=== PATIENT | male | born 1940 | race Caucasian/White ===

== ENCOUNTER 2020-04-03 11:56 | Emergency (ER) | payer MEDICARE ==
[~2020-04-03] VITALS: Ht 180.3 cm; Wt 100.6 kg
[2020-04-03 11:56] VITALS: BP 149/75
[2020-04-03] MEDS ORDERED: ATOR1TAB21 PO (12:04)
[2020-04-03] MEDS ORDERED: ASPI81TA26 PO (12:04)
[2020-04-03] MEDS ORDERED: PROPARACAINE 0.5% OPHTH SOL 15ML OD ONE (13:15)
[2020-04-03] MEDS ORDERED: FLUORESCEIN OPHTH 1 MG STRIP OD ONE (13:15)
== END 2020-04-03 14:15 | disposition home or self-care (01) ==
LOC: M ED 11:56
DX: H53.8 Other visual disturbances (principal); E78.00 Pure hypercholesterolemia, unspecified; K21.9 Gastro-esophageal reflux disease without esophagitis; Z79.899 Other long term (current) drug therapy; Z79.82 Long term (current) use of aspirin

== ENCOUNTER → 2020-04-12 | Outpatient (REF) | payer MEDICARE ==
[~2020-04-12] MED LIST: ASPI81TA26 PO; ATOR1TAB21 PO
== END ==
LOC: M LAB REF 19:09
PROVIDERS: ATTEND Internal Medicine
DX: I77.6 Arteritis, unspecified (principal)

== ENCOUNTER → 2020-04-19 | Outpatient (REF) | payer MEDICARE | LOC: M LAB REF 11:47 | PROVIDERS: ATTEND Surgery | DX: M31.6 Other giant cell arteritis (principal) ==

== ENCOUNTER → 2020-04-21 | Outpatient (REF) | payer MEDICARE | LOC: M LAB REF 10:38 | PROVIDERS: ATTEND Internal Medicine | DX: R79.82 Elevated C-reactive protein (CRP) (principal) ==

== ENCOUNTER → 2020-04-25 | Outpatient (CLI) | payer MEDICARE ==
--- NOTE | 2020-05-12 10:03 | REP ---
DUPLEX CAROTID SONOGRAPHY HISTORY: Transient cerebral ischemic attack. Left amaurosis fugax. FINDINGS: Antegrade flow is observed in the right vertebral artery. The left vertebral artery is not seen. RIGHT CAROTID: The right common carotid artery is unremarkable. There is bodx-sh-gypmbhid mixed plaquing in the right carotid bulb and proximal ICA on two-dimensional scanning. Color flow and spectral Doppler interrogation are unremarkable on the right. VELOCITY CHART RIGHT CAROTID PSV EDV CCA 61 cm/s ICA 55 cm/s 13 cm/s ECA 70 cm/s ICA/CCA ratio 0.9 (normal) IMPRESSION: Less than 50% category narrowing in the right ICA by Doppler velocity criteria. LEFT CAROTID: The left common carotid artery is unremarkable. There is moderate mixed plaquing in the bulb, proximal ICA, and proximal ECA on two-dimensional scanning on the left side. Color flow and spectral Doppler interrogation are unremarkable on the left. VELOCITY CHART LEFT CAROTID PSV EDV CCA 58 cm/s ICA 66 cm/s 18 cm/s ECA 49 cm/s ICA/CCA ratio 1.1 (normal) IMPRESSION: Less than 50% category narrowing in the left ICA by Doppler velocity criteria. MTDD
== END ==
LOC: M RAD 12:36
PROVIDERS: ATTEND Ophthalmology
DX: I65.23 Occlusion and stenosis of bilateral carotid arteries (principal)

== ENCOUNTER → 2020-05-11 | Outpatient (REF) | payer MEDICARE | LOC: M LAB REF 12:48 | PROVIDERS: ATTEND Internal Medicine | DX: M31.6 Other giant cell arteritis (principal) ==

== ENCOUNTER → 2020-05-25 | Outpatient (REF) | payer MEDICARE | LOC: M LAB REF 11:19 | PROVIDERS: ATTEND Internal Medicine | DX: R79.82 Elevated C-reactive protein (CRP) (principal); M31.6 Other giant cell arteritis ==

== ENCOUNTER → 2020-06-08 | Outpatient (REF) | payer MEDICARE | LOC: M LAB REF 11:19 | PROVIDERS: ATTEND Internal Medicine | DX: M31.6 Other giant cell arteritis (principal); R79.82 Elevated C-reactive protein (CRP) ==

== ENCOUNTER → 2020-06-22 | Outpatient (REF) | payer MEDICARE | LOC: M LAB REF 11:38 | PROVIDERS: ATTEND Internal Medicine | DX: M31.6 Other giant cell arteritis (principal) ==

== ENCOUNTER → 2020-07-06 | Outpatient (REF) | payer MEDICARE | LOC: M LAB REF 11:19 | PROVIDERS: ATTEND Internal Medicine | DX: M31.6 Other giant cell arteritis (principal) ==

== ENCOUNTER → 2020-07-20 | Outpatient (REF) | payer MEDICARE | LOC: M LAB REF 11:36 | PROVIDERS: ATTEND Internal Medicine | DX: M31.6 Other giant cell arteritis (principal) ==

== ENCOUNTER → 2020-08-11 | Outpatient (REF) | payer MEDICARE | LOC: M LAB REF 12:05 | PROVIDERS: ATTEND Internal Medicine | DX: M31.6 Other giant cell arteritis (principal) ==

== ENCOUNTER → 2020-08-25 | Outpatient (REF) | payer MEDICARE ==
[~2020-08-25] MED LIST changes: +ASPI-1 PO; +ELIQ5TAB PO; +ESCI10TA16 PO; +PRED5TA PO
== END ==
LOC: M LAB REF 12:20
PROVIDERS: ATTEND Internal Medicine
DX: M31.6 Other giant cell arteritis (principal)

== ENCOUNTER 2020-08-26 14:00 | Inpatient (IN) | payer MEDICARE ==
[~2020-08-26] VITALS: Ht 180.3 cm; Wt 102.9 kg
[~2020-08-26 14:00] MED LIST changes: -ASPI-1 PO; -ELIQ5TAB PO; -ESCI10TA16 PO; -ISOVUE-370 76% 100ML VIAL As Ordered ONE; -PRED5TA PO
[2020-08-26] MEDS ORDERED: NS 1,000 ML IV SCH (14:20)
[2020-08-26] MEDS ORDERED: ESCI10TA16 PO (14:25)
[2020-08-26] MEDS ORDERED: PRED5TA PO (14:25)
[2020-08-26] MEDS ORDERED: ASPI-1 PO (14:25)
[2020-08-26 15:03] LABS: BASO # 0.1 10^3/uL (0.0-0.2); BASO % 0.4 % (0.0-1.0); EOS # 0.1 10^3/uL (0.0-0.5); EOS % 1.3 % (0.0-3.0); HEMATOCRIT 44.2 % (42.0-52.0); LYMPH # 1.2 10^3/uL (1.5-5.0); LYMPH % 10.3 % (24.0-44.0); MEAN CORPUSCULAR HEMOGLOBIN 31.5 pg (27.0-33.0); MEAN CORPUSCULAR HGB CONC 31.7 g/dl (32.0-36.5); MEAN CORPUSCULAR VOLUME 99.5 fl (80.0-96.0); MONO # 0.6 10^3/uL (0.0-0.8); MONO % 5.5 % (0.0-5.0); NEUTROPHILS # 9.1 10^3/uL (1.5-8.5); NEUTROPHILS % 81.3 % (36.0-66.0); PLATELET COUNT, AUTOMATED 156 10^3/uL (150-450); RED BLOOD COUNT 4.44 10^6/uL (4.30-6.10); WHITE BLOOD COUNT 11.2 10^3/uL (4.0-10.0)
[2020-08-26 15:07] LABS: ABG BASE EXCESS -1.3 (-2.0-2.0); ABG HCO3 22.9 MEQ/L (22.0-26.0); ABG O2 SATURATION 96.5 % (95.0-99.0); ABG PARTIAL PRESSURE CO2 36.9 mmHg (35.0-45.0); ABG PARTIAL PRESSURE O2 83.6 mmHg (75.0-100.0); ABG STANDARD HCO3 23.4 MEQ/L (22.0-26.0); ABG TOTAL CO2 24.1 MEQ/L (23.0-31.0); ABG pH (ARTERIAL) 7.411 UNITS (7.350-7.450)
[2020-08-26 15:21] LABS: INR 1.08; PROTHROMBIN TIME 14.2 SECONDS (12.5-14.3)
[2020-08-26 15:22] LABS: PARTIAL THROMBOPLASTIN TIME 25.5 SECONDS (24.2-38.5)
[2020-08-26 15:38] LABS: ALBUMIN 3.3 GM/DL (3.2-5.2); ALT/SGPT 55 U/L (12-78); BILIRUBIN,DIRECT 0.1 MG/DL (0.0-0.2); BILIRUBIN,TOTAL 0.5 MG/DL (0.2-1.0); BLOOD UREA NITROGEN 18 MG/DL (7-18); CALCIUM LEVEL 8.4 MG/DL (8.8-10.2); CARBON DIOXIDE LEVEL 29 MEQ/L (21-32); CHLORIDE LEVEL 106 MEQ/L (98-107); CK-MB VALUE MASS 2.6 NG/ML (<3.6); CPK CREATINE PHOSPHOKINASE 121 U/L (39-308); CREATININE FOR GFR 1.04 MG/DL (0.70-1.30); GLOMERULAR FILTRATION RATE > 60.0 (>35); GLUCOSE, FASTING 198 MG/DL (70-100); MB/CK RELATIVE INDEX 2.15 (< OR =4); NT-PRO BNP 227 PG/ML (<450); POTASSIUM SERUM 4.2 MEQ/L (3.5-5.1); SODIUM LEVEL 142 MEQ/L (136-145); TOTAL PROTEIN 6.2 GM/DL (6.4-8.2); TROPONIN I < 0.02 NG/ML (< 0.10)
[2020-08-26] MEDS ORDERED: MAALOX 30 ML SUSP *UDC PO PRN (16:45)
[2020-08-26] MEDS ORDERED: MOM 30ML SUSPENSION UDC PO PRN (16:45)
--- NOTE | 2020-08-26 17:46 | HPEPDOC ---
General Date of Admission 08/26/20 Date of Service: Aug 26, 2020 Chief Complaint The patient is a 79-year-old male admitted with a reason for visit of Diff Breathing. Source: Patient, RN/MD History of Present Illness 79 year old male with PMH of pulmonary embolism has been having increasing SOB for 3 weeks with increased cough. He went to see his PMD who ordered at CT renee o of chest which was completed today. CT angio of Chest: There is a saddle like abnormal filling defect within the main right and left pulmonary arteries. This represents a change from prior exam. Once again, abnormal filling defects are seen throughout the pulmonary arterial system bilaterally right greater than left. Some of this has improved, some of this has worsened, and some of this appears stable. So he was sent to he ED for evaluation. He complains of some exertional dyspnea with cough. Denies any hemoptysis. denies any chest pain. Denies any leg pain or swelling recently. Denies any travel recently. 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 Surgical History Pilonidal cyst surgery Family History Significant Family History: No pertinent family hx Sister 7 years ago from old age. parents from old age. Social History * Smoker: former Smoker Alcohol: rarely Drugs: denies A-FIB/CHADSVASC A-FIB History Current/History of A-Fib/PAF?: No Review of Systems Constitutional: Denies: Chills, Fever, Night Sweats Eyes: Denies: Pain, Vision change ENT: Denies: Head Aches, Ear Pain, Dysphagia Skin: Denies: Rash, Lesions, Breakdown Pulmonary: Reports: Dyspnea, Cough Cardiovascular: Denies: Chest Pain, Palpitations, Orthopnea, Paroxysmal Noc. Dyspnea, Lt Headedness Gastrointestinal: Denies: Nausea, Vomiting, Abdominal Pain, Diarrhea Genitourinary: Denies: Dysuria, Frequency, Incontinence, Retention Hematologic: Denies: Bruising, Bleeding Excessively Physical Examination General Exam: Positive: Alert, Cooperative, No Acute Distress Eye Exam: Positive: PERRLA, Conjunctiva & lids normal, EOMI; Negative: Sclera icteric ENT Exam: Positive: Atraumatic, Mucous membr. moist/pink, Pharynx Normal Neck Exam: Positive: Supple; Negative: JVD, thyromegaly Chest Exam: Positive: Clear to auscultation, Normal air movement; Negative: Rales, Rhonchi, Wheezing, Diminished, Other Heart Exam: Positive: Rate Normal, Regular Rhythm, Normal S1, Normal S2; Negative: Murmurs, Rubs Telemetry: Positive: No significant arrhythmia Abdomen Exam: Positive: Normal bowel sounds, Soft; Negative: Tenderness, Hepatospenomegaly Extremity Exam: Positive: Edema (right leg), Normal pulses; Negative: Clubbing, Cyanosis Skin Exam: Positive: Nl turgor and temperature; Negative: Breakdown, Lesion Vital Signs Vital Signs Date Time Temp Pulse Resp B/P (MAP) Pulse Ox O2 Delivery O2 Flow Rate FiO2 08/26/20 15:45 73 20 135/68 (90) 98 Room Air 08/26/20 14:50 2.0 08/26/20 14:01 97.5 Laboratory Data Labs 24H Laboratory Tests 2 08/26/20 14:47: Immature Granulocyte % (Auto) 1.2, Neutrophils (%) (Auto) 81.3H, Lymphocytes (%) (Auto) 10.3L, Monocytes (%) (Auto) 5.5H, Eosinophils (%) (Auto) 1.3, Basophils (%) (Auto) 0.4, Neutrophils # (Auto) 9.1H, Lymphocytes # (Auto) 1.2L, Monocytes # (Auto) 0.6, Eosinophils # (Auto) 0.1, Basophils # (Auto) 0.1, Nucleated Red Blood Cells % (auto) 0.0, Prothrombin Time 14.2H, Prothromb Time International Ratio 1.08, Activated Partial Thromboplast Time 25.5, Blood Gas Bicarbonate Standard 23.4, Arterial Blood pH 7.411, Arterial Blood Partial Pressure CO2 36.9, Arterial Blood Partial Pressure O2 83.6, Arterial Blood Total CO2 24.1, Arterial Blood HCO3 22.9, Arterial Blood Base Excess -1.3, Arterial Blood Oxygen Saturation 96.5, Anion Gap 7L, Glomerular Filtration Rate > 60.0, Calcium Level 8.4L, Total Bilirubin 0.5, Direct Bilirubin 0.1, Aspartate Amino Transf (AST/SGOT) 26, Alanine Aminotransferase (ALT/SGPT) 55, Alkaline Phosphatase 79, Total Creatine Kinase 121, Creatine Kinase MB 2.6, Creatine Kinase MB Relative Index 2.15, Troponin I < 0.02, CH-Wml-U-Type Natriuretic Peptide 227, Total Protein 6.2L, Albumin 3.3, Albumin/Globulin Ratio 1.1 CBC/BMP Laboratory Tests 08/26/20 14:47 Microbiology Microbiology 08/26/20 Respiratory Virus Panel (PCR) ([facility]) - Final, Complete Assessment/Plan 79 year old male with PMH of pulmonary embolism has been having increasing SOB for 3 weeks with increased cough. He went to see his PMD who ordered at CT angio of chest which was completed today. CT angio showed pulmonary embolism. CT angio of Chest: There is a saddle like abnormal filling defect within the main right and left pulmonary arteries. This represents a change from prior exam. Once again, abnormal filling defects are seen throughout the pulmonary arterial system bilaterally right greater than left. Some of this has improved, some of this has worsened, and some of this appears stable. Pulmonary embolism Had P in 2007 was on coumadin for a few years then stopped. hypercoagulable work up sent Will start on Eliquis. Vascular US for DVT. Temporal arteritis diagnosed in apr 2020 with partial loss of right eye vision on prednisone Plan / VTE VTE Prophylaxis Ordered?: Yes JESUS LERNER MD Aug 26, 2020 16:46
--- NOTE | 2020-08-26 18:18 | ECGEPIP ---
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
--- NOTE | 2020-08-26 19:09 | REPVR ---
PROCEDURE INFORMATION: Exam: US Duplex Lower Extremity Veins, Bilateral Exam date and time: 08/26/2020 6:20 PM Age: 79 years old Clinical indication: Pulmonary embolism, R/O DVT TECHNIQUE: Imaging protocol: Real-time duplex ultrasound of the extremities with 2-D mayfield scale, color Doppler flow and spectral waveform analysis with image documentation. Complete exam focused on the bilateral lower extremity veins. COMPARISON: No relevant prior studies available. FINDINGS: Right deep veins: Unremarkable. The common femoral, femoral, and popliteal veins are patent without thrombus. Normal compressibility, augmentation response and Doppler waveforms. The right mid femoral vein is duplicated. Right superficial veins: Saphenofemoral junction is patent without thrombus. Left deep veins: There is a deep vein thrombosis extending from the left popliteal vein to the left femoral vein in the left upper thigh, which is occlusive in the left mid femoral vein. The left common femoral vein is patent and demonstrates normal color Doppler blood flow and a normal spectral waveform. The left mid femoral vein is duplicated. Left superficial veins: Saphenofemoral junction is patent without thrombus. IMPRESSION: 1. Deep vein thrombosis extending from the left popliteal vein to the left femoral vein in the left upper thigh. 2. No deep vein thrombosis in the right femoropopliteal veins. Electronically signed by: Yvan Yates On 08/26/2020 19:09:28 PM
[2020-08-26 21:48] VITALS: BP 142/83
[2020-08-26] MEDS: DOCUSATE SODIUM 100MG CAPSULE PO SCH (22:30)
[2020-08-26] MEDS: APIXABAN 5 MG TAB (ELIQUIS) PO SCH (22:30)
[2020-08-26] MEDS: ATORVASTATIN 20 MG TAB PO SCH (22:30)
[2020-08-27 06:00] VITALS: BP 153/71
[2020-08-27 07:18] LABS: BASO # 0.1 10^3/uL (0.0-0.2); BASO % 0.5 % (0.0-1.0); EOS # 0.3 10^3/uL (0.0-0.5); EOS % 2.2 % (0.0-3.0); HEMATOCRIT 42.1 % (42.0-52.0); HEMOGLOBIN 13.4 g/dl (13.5-17.5); LYMPH # 2.6 10^3/uL (1.5-5.0); MEAN CORPUSCULAR HEMOGLOBIN 31.6 pg (27.0-33.0); MEAN CORPUSCULAR HGB CONC 31.8 g/dl (32.0-36.5); MEAN CORPUSCULAR VOLUME 99.3 fl (80.0-96.0); MONO # 0.9 10^3/uL (0.0-0.8); NEUTROPHILS # 7.7 10^3/uL (1.5-8.5); NEUTROPHILS % 66.6 % (36.0-66.0); PLATELET COUNT, AUTOMATED 145 10^3/uL (150-450); RED BLOOD COUNT 4.24 10^6/uL (4.30-6.10); WHITE BLOOD COUNT 11.6 10^3/uL (4.0-10.0)
[2020-08-27 07:38] LABS: BLOOD UREA NITROGEN 14 MG/DL (7-18); CALCIUM LEVEL 7.9 MG/DL (8.8-10.2); CARBON DIOXIDE LEVEL 27 MEQ/L (21-32); CHLORIDE LEVEL 109 MEQ/L (98-107); CREATININE FOR GFR 0.78 MG/DL (0.70-1.30); GLOMERULAR FILTRATION RATE > 60.0 (>35); GLUCOSE, FASTING 80 MG/DL (70-100); POTASSIUM SERUM 4.2 MEQ/L (3.5-5.1); SODIUM LEVEL 143 MEQ/L (136-145)
[2020-08-27] MEDS ORDERED: ELIQ5TAB PO (08:57)
[2020-08-27] MEDS: DOCUSATE SODIUM 100MG CAPSULE PO SCH ×2 (09:06→20:13)
[2020-08-27] MEDS: APIXABAN 5 MG TAB (ELIQUIS) PO SCH ×2 (09:06→20:07)
[2020-08-27] MEDS: ESCITALOPRAM OXALATE 10 MG TAB (LEXAPRO) PO SCH (09:06)
[2020-08-27] MEDS: predniSONE 5 MG TAB PO SCH (09:07)
[2020-08-27 14:00] VITALS: BP 158/90
--- NOTE | 2020-08-27 16:53 | IPNPDOC ---
Subjective Date Seen The patient was seen on 08/27/20. Subjective Chief Complaint/HPI No compliants this morning. Denies any chest pain or sob, did not need any oxygen. No leg pain or swelling Objective Physical Examination General Exam: Positive: Alert, Cooperative, No Acute Distress Eye Exam: Positive: PERRLA, Conjunctiva & lids normal, EOMI; Negative: Sclera icteric ENT Exam: Positive: Atraumatic, Mucous membr. moist/pink, Pharynx Normal Neck Exam: Positive: Supple; Negative: JVD, thyromegaly Chest Exam: Positive: Clear to auscultation, Normal air movement; Negative: Rales, Rhonchi, Wheezing, Diminished, Other Heart Exam: Positive: Rate Normal, Regular Rhythm, Normal S1, Normal S2; Negative: Murmurs, Rubs Telemetry: Positive: No significant arrhythmia Abdomen Exam: Positive: Normal bowel sounds, Soft; Negative: Tenderness, Hepatospenomegaly Extremity Exam: Positive: Edema (right leg), Normal pulses; Negative: Clubbing, Cyanosis Skin Exam: Positive: Nl turgor and temperature; Negative: Breakdown, Lesion Assessment /Plan Assessment 79 year old male with PMH of pulmonary embolism has been having increasing SOB for 3 weeks with increased cough. He went to see his PMD who ordered at CT angio of chest which was completed today. CT angio showed pulmonary embolism. CT angio of Chest: There is a saddle like abnormal filling defect within the main right and left pulmonary arteries. This represents a change from prior exam. Once again, abnormal filling defects are seen throughout the pulmonary arterial system bilaterally right greater than left. Some of this has improved, some of this has worsened, and some of this appears stable. Pulmonary embolism Large throbus load some of it is acute some is chronic Had PE in 2007 was on coumadin for a few years then stopped. hypercoagulable work up sent started on Eliquis. Discussed with Dr Posada, advised bed rest for 72 hours Acute DVT of left leg DVT from left popliteal artery with Left SFA with occlusive thrombus in erna left mid SFA portion. discussed with Dr Roque . She would evaluate on Moday for the possibility of placement of IVC filter. Temporal arteritis diagnosed in apr 2020 with partial loss of right eye vision on prednisone HLD atrovastatin Plan/VTE VTE Prophylaxis Ordered?: Yes VS, I&O, 24H, Fishbone Vital Signs/I&O Vital Signs Date Time Temp Pulse Resp B/P (MAP) Pulse Ox O2 Delivery O2 Flow Rate FiO2 08/27/20 14:00 97.7 76 16 158/90 (112) 90 Room Air 08/26/20 21:48 2.0 I&O- Last 24 Hours up to 6 AM 08/27/20 07:00 Intake Total 1270 ml Balance 1270 ml Laboratory Data 24H LABS Laboratory Tests 2 08/27/20 06:56: Immature Granulocyte % (Auto) 0.7, Neutrophils (%) (Auto) 66.6H, Lymphocytes (%) (Auto) 22.0L, Monocytes (%) (Auto) 8.0H, Eosinophils (%) (Auto) 2.2, Basophils (%) (Auto) 0.5, Neutrophils # (Auto) 7.7, Lymphocytes # (Auto) 2.6, Monocytes # (Auto) 0.9H, Eosinophils # (Auto) 0.3, Basophils # (Auto) 0.1, Nucleated Red Blo od Cells % (auto) 0.0, Anion Gap 7L, Glomerular Filtration Rate > 60.0, Calcium Level 7.9L CBC/BMP Laboratory Tests 08/27/20 06:56 Microbiology Microbiology 08/26/20 Respiratory Virus Panel (PCR) ([facility]) - Final, Complete JESUS LERNER MD Aug 27, 2020 16:53
[2020-08-27] MEDS: ATORVASTATIN 20 MG TAB PO SCH (20:07)
[2020-08-27 22:00] VITALS: BP 140/70
[2020-08-28 06:00] VITALS: BP 154/74
[2020-08-28 07:19] LABS: BASO # 0.1 10^3/uL (0.0-0.2); BASO % 0.5 % (0.0-1.0); EOS # 0.2 10^3/uL (0.0-0.5); EOS % 2.4 % (0.0-3.0); HEMATOCRIT 42.3 % (42.0-52.0); HEMOGLOBIN 13.5 g/dl (13.5-17.5); LYMPH # 2.2 10^3/uL (1.5-5.0); LYMPH % 22.6 % (24.0-44.0); MEAN CORPUSCULAR HEMOGLOBIN 31.5 pg (27.0-33.0); MEAN CORPUSCULAR HGB CONC 31.9 g/dl (32.0-36.5); MEAN CORPUSCULAR VOLUME 98.8 fl (80.0-96.0); MONO # 0.9 10^3/uL (0.0-0.8); MONO % 8.9 % (0.0-5.0); NEUTROPHILS # 6.3 10^3/uL (1.5-8.5); NEUTROPHILS % 64.8 % (36.0-66.0); PLATELET COUNT, AUTOMATED 162 10^3/uL (150-450); RED BLOOD COUNT 4.28 10^6/uL (4.30-6.10); WHITE BLOOD COUNT 9.7 10^3/uL (4.0-10.0)
[2020-08-28 07:48] LABS: BLOOD UREA NITROGEN 14 MG/DL (7-18); CALCIUM LEVEL 8.5 MG/DL (8.8-10.2); CARBON DIOXIDE LEVEL 28 MEQ/L (21-32); CHLORIDE LEVEL 108 MEQ/L (98-107); CREATININE FOR GFR 0.87 MG/DL (0.70-1.30); GLOMERULAR FILTRATION RATE > 60.0 (>35); GLUCOSE, FASTING 77 MG/DL (70-100); POTASSIUM SERUM 4.3 MEQ/L (3.5-5.1); SODIUM LEVEL 142 MEQ/L (136-145)
[2020-08-28] MEDS: APIXABAN 5 MG TAB (ELIQUIS) PO SCH ×2 (08:21→21:13)
[2020-08-28] MEDS: ESCITALOPRAM OXALATE 10 MG TAB (LEXAPRO) PO SCH (08:21)
[2020-08-28] MEDS: DOCUSATE SODIUM 100MG CAPSULE PO SCH ×3 (08:22→21:00)
[2020-08-28] MEDS: predniSONE 5 MG TAB PO SCH (08:22)
--- NOTE | 2020-08-28 13:40 | IPNPDOC ---
Subjective Date Seen The patient was seen on 08/28/20. Subjective Chief Complaint/HPI No complaints this morning. no chest pain or sob. Objective Physical Examination General Exam: Positive: Alert, Cooperative, No Acute Distress Eye Exam: Positive: PERRLA, Conjunctiva & lids normal, EOMI; Negative: Sclera icteric ENT Exam: Positive: Atraumatic, Mucous membr. moist/pink, Pharynx Normal Neck Exam: Positive: Supple; Negative: JVD, thyromegaly Chest Exam: Positive: Clear to auscultation, Normal air movement; Negative: Rales, Rhonchi, Wheezing, Diminished, Other Heart Exam: Positive: Rate Normal, Regular Rhythm, Normal S1, Normal S2; Negative: Murmurs, Rubs Telemetry: Positive: No significant arrhythmia Abdomen Exam: Positive: Normal bowel sounds, Soft; Negative: Tenderness, Hepatospenomegaly Extremity Exam: Positive: Edema (right leg), Normal pulses; Negative: Clubbing, Cyanosis Skin Exam: Positive: Nl turgor and temperature; Negative: Breakdown, Lesion Assessment /Plan Assessment 79 year old male with PMH of pulmonary embolism has been having increasing SOB for 3 weeks with increased cough. He went to see his PMD who ordered at CT angio of chest which was completed today. CT angio showed pulmonary embolism. CT angio of Chest: There is a saddle like abnormal filling defect within the main right and left pulmonary arteries. This represents a change from prior exam. Once again, abnormal filling defects are seen throughout the pulmonary arterial system bilaterally right greater than left. Some of this has improved, some of this has worsened, and some of this appears stable. Pulmonary embolism Large throbus load some of it is acute some is chronic Had PE in 2007 was on coumadin for a few years then stopped. hypercoagulable work up sent started on Eliquis. Discussed with Dr Posada, advised bed rest for 72 hours Acute DVT of left leg DVT from left popliteal artery with Left SFA with occlusive thrombus in erna left mid SFA portion. discussed with Dr Roque . She would evaluate on for the possibility of placement of IVC filter. Temporal arteritis diagnosed in apr 2020 with partial loss of right eye vision on prednisone HLD atrovastatin Plan/VTE VTE Prophylaxis Ordered?: Yes VS, I&O, 24H, Fishbone Vital Signs/I&O Vital Signs Date Time Temp Pulse Resp B/P (MAP) Pulse Ox O2 Delivery O2 Flow Rate FiO2 08/28/20 06:00 98.1 65 20 154/74 (100) 93 Room Air 08/26/20 21:48 2.0 I&O- Last 24 Hours up to 6 AM 08/28/20 06:00 Intake Total 1480 ml Output Total 0 ml Balance 1480 ml Laboratory Data 24H LABS Laboratory Tests 2 08/28/20 06:49: Immature Granulocyte % (Auto) 0.8, Neutrophils (%) (Auto) 64.8, Lymphocytes (%) (Auto) 22.6L, Monocytes (%) (Auto) 8.9H, Eosinophils (%) (Auto) 2.4, Basophils (%) (Auto) 0.5, Neutrophils # (Auto) 6.3, Lymphocytes # (Auto) 2.2, Monocytes # (Auto) 0.9H, Eosinophils # (Auto) 0.2, Basophils # (Auto) 0.1, Nucleated Red Blood Cells % (auto) 0.0, Anion Gap 6L, Glomerular Filtration Rate > 60.0, Calcium Level 8.5L CBC/BMP Laboratory Tests 08/28/20 06:49 Microbiology Microbiology 08/26/20 Respiratory Virus Panel (PCR) ([facility]) - Final, Complete JESUS LERNER MD Aug 28, 2020 13:40
[2020-08-28 14:00] VITALS: BP 140/82
[2020-08-28] MEDS: ATORVASTATIN 20 MG TAB PO SCH (21:13)
[2020-08-28 22:00] VITALS: BP 142/88
[2020-08-29 06:00] VITALS: BP 152/78
[2020-08-29 07:00] LABS: BASO # 0.1 10^3/uL (0.0-0.2); BASO % 0.5 % (0.0-1.0); EOS # 0.3 10^3/uL (0.0-0.5); EOS % 2.5 % (0.0-3.0); HEMATOCRIT 44.6 % (42.0-52.0); HEMOGLOBIN 14.3 g/dl (13.5-17.5); LYMPH # 2.5 10^3/uL (1.5-5.0); LYMPH % 22.2 % (24.0-44.0); MEAN CORPUSCULAR HEMOGLOBIN 31.7 pg (27.0-33.0); MEAN CORPUSCULAR HGB CONC 32.1 g/dl (32.0-36.5); MEAN CORPUSCULAR VOLUME 98.9 fl (80.0-96.0); MONO % 8.5 % (0.0-5.0); NEUTROPHILS # 7.4 10^3/uL (1.5-8.5); NEUTROPHILS % 65.6 % (36.0-66.0); PLATELET COUNT, AUTOMATED 191 10^3/uL (150-450); RED BLOOD COUNT 4.51 10^6/uL (4.30-6.10); WHITE BLOOD COUNT 11.2 10^3/uL (4.0-10.0)
[2020-08-29 07:28] LABS: BLOOD UREA NITROGEN 17 MG/DL (7-18); CALCIUM LEVEL 8.6 MG/DL (8.8-10.2); CARBON DIOXIDE LEVEL 26 MEQ/L (21-32); CHLORIDE LEVEL 108 MEQ/L (98-107); CREATININE FOR GFR 0.83 MG/DL (0.70-1.30); GLOMERULAR FILTRATION RATE > 60.0 (>35); GLUCOSE, FASTING 74 MG/DL (70-100); SODIUM LEVEL 141 MEQ/L (136-145)
[2020-08-29] MEDS ORDERED: ELIQ5TAB PO ×2 (08:29→11:53)
[2020-08-29] MEDS: ESCITALOPRAM OXALATE 10 MG TAB (LEXAPRO) PO SCH (08:54)
[2020-08-29] MEDS: APIXABAN 5 MG TAB (ELIQUIS) PO SCH (08:54)
[2020-08-29] MEDS: predniSONE 5 MG TAB PO SCH (08:55)
[2020-08-29] MEDS: DOCUSATE SODIUM 100MG CAPSULE PO SCH (08:55)
--- NOTE | 2020-08-29 09:01 | CR.PDOC ---
General Date of Consultation: Aug 29, [address] Patton HISTORY OF PRESENT ILLNESS: The patient is an 79-year-old male admitted 08/26/20 with shortness of breath. The patient was noted to have history of pulmonary embolism in 2007, treated with anticoagulation at that time per pt "for a few years" however not on anticoagulation prior to this admission. CTA chest indicated saddle-like filling defect within the right main and left pulmonary arteries. The patient was admitted to [facility] for further management. Vascular surgery was consulted for further recommendations. The patient is currently on aspirin 325 mg and Eliquis anticoagulation. ALLERGIES: Please see below. HOME MEDICATIONS: Please see below. 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 PAST SURGICAL HISTORY: Pilonidal cyst surgery FAMILY HISTORY: Sister 7 years ago from old age. Parents from old age. SOCIAL HISTORY: Former smoker REVIEW OF SYSTEMS: As noted in HPI otherwise 10 point review systems unremarkable. PHYSICAL EXAMINATION: VITAL SIGNS: Please see below. GENERAL APPEARANCE: NAD HEENT: MMM RESPIRATORY: No respiratory distress, saturations 92-99% on room air. CARDIOVASCULAR: RRR Ultrasound lower extremities IMPRESSION: 1. Deep vein thrombosis extending from the left popliteal vein to the left femoral vein in the left upper thigh. 2. No deep vein thrombosis in the right femoropopliteal veins. Electronically signed by: Yvan Yates On 08/26/2020 19:09:28 CTA chest 08/26/20 IMPRESSION: Extensive pulmonary emboli with evidence of a saddle embolus as described above. Whether or not any or all of this represents an acute change from the prior exam cannot be stated with certainty since no sequential imaging has been performed since that prior exam, as such, I have no normal chest CT to review against the positive findings today. I will consider the findings significant for acute pulmonary emboli at least in part. The greatest concern is the saddle embolus. A stat report will be generated at the time of this dictation and brought to the attention of Dr. Moy Barger or his dedicated alternative. <Electronically signed by Erick Viramontes > 08/26/20 [id number] ASSESSMENT/PLAN: Left DVT/PE. Patient with previous history of pulmonary embolism 2007. The patient was not on anticoagulation at the time of this admission. The patient and all imaging is reviewed by Dr. Patton. Lower extremity ultrasound with occlusive thrombus at the mid femoral vein, no occlusive thrombus proximally or in the iliac. The patient's oxygen saturations have been stable on room air. Hypercoagulable workup has been requested during this admission, would recommend follow-up with PCP as an outpatient for follow-up of results. Possibly consider hematology referral as per PCP. Continue with Eliquis anticoagulation, patient should continue with this for at least one year. As per Dr. Patton, IVC filter would not be indicated at this time. Would recommend outpatient follow-up with vascular surgery in 3 months for follow-up bilateral lower extremity venous ultrasound to reevaluate left lower extremity DVT. The above recommendations were relayed to Dr. Menard as per Dr. Patton. Vital Signs/I&O Vital Signs Date Time Temp Pulse Resp B/P (MAP) Pulse Ox O2 Delivery O2 Flow Rate FiO2 08/29/20 06:00 98.7 72 18 152/78 (102) 93 Room Air 08/26/20 21:48 2.0 I&O- Last 24 Hours up to 6 AM 08/29/20 06:00 Intake Total 1500 ml Output Total 1225 ml Balance 275 ml Laboratory Data Labs 24H Laboratory Tests 2 08/29/20 06:49: Immature Granulocyte % (Auto) 0.7, Neutrophils (%) (Auto) 65.6, Lymphocytes (%) (Auto) 22.2L, Monocytes (%) (Auto) 8.5H, Eosinophils (%) (Auto) 2.5, Basophils (%) (Auto) 0.5, Neutrophils # (Auto) 7.4, Lymphocytes # (Auto) 2.5, Monocytes # (Auto) 1.0H, Eosinophils # (Auto) 0.3, Basophils # (Auto) 0.1, Nucleated Red Blood Cells % (auto) 0.0, Anion Gap 7L, Glomerular Filtration Rate > 60.0, Calcium Level 8.6L CBC/BMP Laboratory Tests 08/29/20 06:49 Microbiology Microbiology 08/26/20 Respiratory Virus Panel (PCR) ([facility]) - Final, Complete Allergies Coded Allergies: No Known Allergies (Unverified , 04/03/20) Home Medications Scheduled Apixaban (Eliquis) 5 Mg Tablet, 5 MG PO ASDIRECTED, #74 10 MG (2 TABS) TWICE PER DAY FOR 4 DAYS THEN 5 MG (1 TAB) TWICE PER DAY Atorvastatin Calcium (Atorvastatin Calcium) 20 Mg Tablet, 20 MG PO QHS, (Reported) Escitalopram Oxalate (Escitalopram Oxalate) 10 Mg Tablet, 10 MG PO DAILY, (Reported) Prednisone (Prednisone) 5 Mg Tablet, 15 MG PO DAILY, (Reported) Rosy Beltrán Aug 29, 2020 09:01
[2020-08-31 14:07] LABS: DRVV SCREEN 44.6 SEC
[2020-08-31 14:12] LABS: PTT LUPUS TYPE ANTICOAG SCREEN 1.1 (0-1.2)
[2020-09-01 13:08] LABS: ANTI THROMBIN 3 ANTIGEN IMMUNO 99 % (72-124); ANTI THROMBIN 3 FUNCT ACTIVITY 101 % (75-135); CARDIOLIPIN IGA ANTIBODY <9 APL U/mL (0-11); CARDIOLIPIN IGG ANTIBODY <9 GPL U/mL (0-14); CARDIOLIPIN IGM ANTIBODY <9 MPL U/mL (0-12); PHOSPHOLIPIDS LEVEL 200 mg/dL (150-250); PROTEIN C FUNCTIONAL ACTIVITY 121 % (73-180); PROTEIN S FUNCTIONAL ACTIVITY 113 % (63-140)
--- NOTE | 2020-09-05 15:32 | DS.PDOC ---
Discharge Summary General Date of Admission Aug 26, 2020 at 16:42 Date of Discharge 08/29/20 Discharge Summary PROCEDURES PERFORMED DURING STAY: [None]. DISCHARGE DIAGNOSES: Acute pulmonary embolism Acute DVT. Temporal arteritis HLD. COMPLICATIONS/CHIEF COMPLAINT: Pulmonary Embolism. HOSPITAL COURSE: 79 year old male with PMH of pulmonary embolism has been having increasing SOB for 3 weeks with increased cough. He went to see his PMD who ordered at CT angio of chest which was completed today. CT angio showed pulmonary embolism. Lower ex US showed DVT in left leg. CT angio of Chest: There is a saddle like abnormal filling defect within the main right and left pulmonary arteries. This represents a change from prior exam. Once again, abnormal filling defects are seen throughout the pulmonary arterial system bilaterally right greater than left. Some of this has improved, some of this has worsened, and some of this appears stable. Pulmonary embolism Large throbus load some of it is acute some is chronic Had PE in 2007 was on coumadin for a few years then stopped. hypercoagulable work up sent started on Eliquis. Acute DVT of left leg DVT from left popliteal artery with Left SFA with occlusive thrombus in erna left mid SFA portion. discussed with Dr Cardoza. He does not need an IVC filter at this time. will refer to her for outpatient follow up in 3 months. Please consult note for full details. Temporal arteritis diagnosed in apr 2020 with partial loss of right eye vision on prednisone HLD atrovastatin DISCHARGE MEDICATIONS: Please see below. ALLERGIES: Please see below. PHYSICAL EXAMINATION ON DISCHARGE: VITAL SIGNS: Please see below. General Exam: Positive: Alert, Cooperative, No Acute Distress Eye Exam: Positive: PERRLA, Conjunctiva & lids normal, EOMI; Negative: Sclera icteric ENT Exam: Positive: Atraumatic, Mucous membr. moist/pink, Pharynx Normal Neck Exam: Positive: Supple; Negative: JVD, thyromegaly Chest Exam: Positive: Clear to auscultation, Normal air movement; Negative: Rales, Rhonchi, Wheezing, Diminished, Other Heart Exam: Positive: Rate Normal, Regular Rhythm, Normal S1, Normal S2; Negative: Murmurs, Rubs Telemetry: Positive: No significant arrhythmia Abdomen Exam: Positive: Normal bowel sounds, Soft; Negative: Tenderness, Hepatosplenomegaly Extremity Exam: Positive: Edema (right leg), Normal pulses; Negative: Clubbing, Cyanosis Skin Exam: Positive: Nl turgor and temperature; Negative: Breakdown, Lesion LABORATORY DATA: Please see below. IMAGING: Lower EX Doppler 1. Deep vein thrombosis extending from the left popliteal vein to the left femoral vein in the left upper thigh. 2. No deep vein thrombosis in the right femoropopliteal veins. CT angio of chest There is a saddle like abnormal filling defect within the main right and left pulmonary arteries. This represents a change from prior exam. Once again, abnormal filling defects are seen throughout the pulmonary arterial system bilaterally right greater than left. Some of this has improved, some of this has worsened, and some of this appears stable. Impression: Extensive pulmonary emboli with evidence of a saddle embolus as described above. Whether or not any or all of this represents an acute change from the prior exam cannot be stated with certainty since no sequential imaging has been performed since that prior exam, as such, I have no normal chest CT to review against the positive findings today. I will consider the findings significant for acute pulmonary emboli at least in part. The greatest concern is the saddle embolus. ACTIVITY: [As tolerated]. DIET: As tolerated DISPOSITION: 01 Home, Self-Care. DISCHARGE INSTRUCTIONS: PMD in [address] Cardoza in 3 months Needs referral to hematology in 1 month. ITEMS TO FOLLOWUP ON ON OUTPATIENT: Hypercoagulable work up DISCHARGE CONDITION: [Stable]. TIME SPENT ON DISCHARGE: 35 minutes. Microbiology Microbiology 08/26/20 Respiratory Virus Panel (PCR) ([facility]) - Final, Complete Discharge Medications Scheduled Apixaban (Eliquis) 5 Mg Tablet, 5 MG PO BID Atorvastatin Calcium (Atorvastatin Calcium) 20 Mg Tablet, 20 MG PO QHS, (Reported) Escitalopram Oxalate (Escitalopram Oxalate) 10 Mg Tablet, 10 MG PO DAILY, (Reported) Prednisone (Prednisone) 5 Mg Tablet, 15 MG PO DAILY, (Reported) Allergies Coded Allergies: No Known Allergies (Unverified , 04/03/20) JESUS LERNER MD Sep 05, 2020 15:32
== END 2020-08-29 13:39 | disposition home or self-care (01) | DRG 176 ==
LOC: M ED 14:00 → M ED INP 16:42 → M MSPAV 21:27
PROVIDERS: ADMIT Internal Medicine Nephrology; ATTEND Internal Medicine Nephrology
DX: I26.92 Saddle embolus of pulmonary artery without acute cor pulmonale (principal); I82.432 Acute embolism and thrombosis of left popliteal vein; R06.02 Shortness of breath; M31.6 Other giant cell arteritis; E78.5 Hyperlipidemia, unspecified; H54.61 Unqualified visual loss, right eye, normal vision left eye; Z79.52 Long term (current) use of systemic steroids; Z87.891 Personal history of nicotine dependence; Z79.82 Long term (current) use of aspirin; Z79.899 Other long term (current) drug therapy

== ENCOUNTER → 2020-08-26 | Outpatient (CLI) | payer MEDICARE ==
[~2020-08-26] MED LIST changes: +ISOVUE-370 76% 100ML VIAL As Ordered ONE
--- NOTE | 2020-08-26 12:13 | REP ---
INDICATION: SOB. COMPARISON: 10/15/2007 TECHNIQUE: CT angiography. 100 cc Isovue 370. FINDINGS: There is excellent visualization of the pulmonary arterial vasculature. There is a saddle like abnormal filling defect within the main right and left pulmonary arteries. This represents a change from prior exam. Once again, abnormal filling defects are seen throughout the pulmonary arterial system bilaterally right greater than left. Some of this has improved, some of this has worsened, and some of this appears stable. There are no pleural or pericardial effusions. There is no change in the imaged upper abdomen or imaged osseous structures. Evaluation of the lung taylor shows evidence of parenchymal fibrotic change. No new nodules have developed. IMPRESSION: Extensive pulmonary emboli with evidence of a saddle embolus as described above. Whether or not any or all of this represents an acute change from the prior exam cannot be stated with certainty since no sequential imaging has been performed since that prior exam, as such, I have no normal chest CT to review against the positive findings today. I will consider the findings significant for acute pulmonary emboli at least in part. The greatest concern is the saddle embolus. A stat report will be generated at the time of this dictation and brought to the attention of Dr. Moy Barger or his dedicated alternative. <Electronically signed by Erick Viramontes > 08/26/20 0744
== END ==
LOC: M RAD 10:30
PROVIDERS: ATTEND Internal Medicine
DX: I26.99 Other pulmonary embolism without acute cor pulmonale (principal); R06.02 Shortness of breath

== ENCOUNTER → 2020-09-08 | Outpatient (REF) | payer MEDICARE ==
[~2020-09-08] MED LIST changes: +ASPI-1 PO; +ELIQ5TAB PO; +ESCI10TA16 PO; +PRED5TA PO
== END ==
LOC: M LAB REF 16:16
PROVIDERS: ATTEND Internal Medicine
DX: M31.6 Other giant cell arteritis (principal)

== ENCOUNTER → 2020-09-22 | Outpatient (REF) | payer MEDICARE | LOC: M LAB REF 13:35 | PROVIDERS: ATTEND Internal Medicine | DX: M31.6 Other giant cell arteritis (principal) ==

== ENCOUNTER → 2020-10-06 | Outpatient (REF) | payer MEDICARE | LOC: M LAB REF 16:43 | PROVIDERS: ATTEND Internal Medicine | DX: M31.6 Other giant cell arteritis (principal) ==

== ENCOUNTER → 2020-10-20 | Outpatient (REF) | payer MEDICARE | LOC: M LAB REF 13:19 | PROVIDERS: ATTEND Internal Medicine | DX: M31.6 Other giant cell arteritis (principal) ==

== ENCOUNTER → 2020-11-03 | Outpatient (REF) | payer MEDICARE | LOC: M LAB REF 16:15 | PROVIDERS: ATTEND Internal Medicine | DX: M31.6 Other giant cell arteritis (principal) ==

== ENCOUNTER → 2020-11-17 | Outpatient (REF) | payer MEDICARE | LOC: M LAB REF 12:20 | PROVIDERS: ATTEND Internal Medicine | DX: M31.6 Other giant cell arteritis (principal) ==

== ENCOUNTER → 2020-12-01 | Outpatient (REF) | payer MEDICARE | LOC: M LAB REF 16:23 | PROVIDERS: ATTEND Internal Medicine | DX: M31.6 Other giant cell arteritis (principal) ==

== ENCOUNTER → 2020-12-15 | Outpatient (REF) | payer MEDICARE | LOC: M LAB REF 12:35 | PROVIDERS: ATTEND Internal Medicine | DX: M31.6 Other giant cell arteritis (principal) ==

== ENCOUNTER → 2021-01-17 | Outpatient (REF) | payer MEDICARE | LOC: M LAB REF 11:09 | PROVIDERS: ATTEND Internal Medicine | DX: M31.6 Other giant cell arteritis (principal) ==

== ENCOUNTER → 2021-02-16 | Outpatient (REF) | payer MEDICARE | LOC: M LAB REF 12:09 | PROVIDERS: ATTEND Internal Medicine | DX: M31.6 Other giant cell arteritis (principal) ==

== ENCOUNTER → 2021-03-20 | Outpatient (CLI) | payer MEDICARE | LOC: M WUC 13:51 | PROVIDERS: ATTEND Optometrist | DX: H47.011 Ischemic optic neuropathy, right eye (principal) ==

== ENCOUNTER → 2021-04-05 | Outpatient (REF) | payer MEDICARE | LOC: M LAB REF 16:32 | PROVIDERS: ATTEND Internal Medicine | DX: M31.6 Other giant cell arteritis (principal) ==

== ENCOUNTER → 2021-04-26 | Outpatient (REF) | payer MEDICARE ==
[2021-04-26 11:14] LABS: C REACTIVE PROTEIN QUANTITATIV 0.77 MG/DL (0.00-0.30)
== END ==
LOC: M LAB REF 10:12
PROVIDERS: ATTEND Internal Medicine
DX: R53.83 Other fatigue (principal); M31.6 Other giant cell arteritis

== ENCOUNTER → 2021-04-28 | Outpatient (REF) | payer MEDICARE | LOC: M LAB REF 09:53 | PROVIDERS: ATTEND Internal Medicine | DX: B59 Pneumocystosis (principal); R05 Cough ==

== ENCOUNTER → 2021-05-02 | Outpatient (CLI) | payer MEDICARE ==
--- NOTE | 2021-05-02 14:55 | REP ---
INDICATION: PT ON CHRONIC STEROIDS WITH HYPOXEMIA. COMPARISON: 10/15/2007 the only prior TECHNIQUE: PA and lateral FINDINGS: The superior mediastinal structures are midline. The cardiac silhouette is unremarkable in size, shape, and position. The diaphragmatic surfaces of the lungs are regular, and the costophrenic angles are clear. The pulmonary taylor are clear. The imaged osseous structures are intact. IMPRESSION: There is no acute cardiopulmonary disease. <Electronically signed by Erick Viramontes > 05/02/21 [id number]
== END ==
LOC: M WUC 14:43
PROVIDERS: ATTEND Internal Medicine
DX: Z79.899 Other long term (current) drug therapy (principal); Z79.52 Long term (current) use of systemic steroids

== ENCOUNTER → 2021-05-09 | Outpatient (CLI) | payer MEDICARE ==
--- NOTE | 2021-05-09 13:54 | REP ---
INDICATION: LOW BACK PAIN. COMPARISON: None. TECHNIQUE: AP and lateral views FINDINGS: There is no acute fracture or destructive osseous lesion. Degenerative changes are seen involving the imaged portions spine and hips. IMPRESSION: No acute osseous abnormality. <Electronically signed by Erick Viramontes > 05/09/21 [id number]
--- NOTE | 2021-05-09 14:12 | REP ---
INDICATION: LOW BACK PAIN. COMPARISON: None. TECHNIQUE: Five views FINDINGS: There is bilateral marginal osteophytosis. There is moderate disc space narrowing particularly posterior at every level. There is anterior lipping at every level. Degenerative facet joint changes are present at every level bilaterally particularly L4-5 and L5-S1. Vertebral body height is within normal limits. There appear to be some developing syndesmophytes as well. IMPRESSION: Chronic changes as described above. <Electronically signed by Erick Viramontes > 05/09/21 [id number]
== END ==
LOC: M WUC 13:00
PROVIDERS: ATTEND Internal Medicine
DX: M54.5 Low back pain (principal)

== ENCOUNTER → 2021-05-18 | Outpatient (REF) | payer MEDICARE | LOC: M LAB REF 13:41 | PROVIDERS: ATTEND Internal Medicine | DX: M31.6 Other giant cell arteritis (principal) ==

== ENCOUNTER → 2021-06-01 | Outpatient (REF) | payer MEDICARE | LOC: M LAB REF 16:35 | PROVIDERS: ATTEND Internal Medicine | DX: M31.6 Other giant cell arteritis (principal) ==

== ENCOUNTER → 2021-06-08 | Outpatient (REF) | payer MEDICARE | LOC: M LAB REF 16:45 | PROVIDERS: ATTEND Internal Medicine | DX: M31.6 Other giant cell arteritis (principal) ==

== ENCOUNTER → 2021-06-26 | Outpatient (REF) | payer MEDICARE | LOC: M LAB REF 16:19 | PROVIDERS: ATTEND Internal Medicine | DX: M31.6 Other giant cell arteritis (principal) ==

== ENCOUNTER → 2021-07-10 | Outpatient (REF) | payer MEDICARE | LOC: M LAB REF 16:10 | PROVIDERS: ATTEND Internal Medicine | DX: M31.6 Other giant cell arteritis (principal) ==

== ENCOUNTER → 2021-07-22 | Outpatient (CLI) | payer MEDICARE | LOC: M LABSMTC 10:38 | PROVIDERS: ATTEND Anesthesiology | DX: Z01.812 Encounter for preprocedural laboratory examination (principal); Z20.822 Contact with and (suspected) exposure to COVID-19 ==

== ENCOUNTER 2021-07-27 09:41 | Day surgery (SDC) | payer MEDICARE ==
[~2021-07-27] VITALS: Ht 180.3 cm; Wt 97.0 kg
[~2021-07-27 09:41] MED LIST changes: +CYCLOPENTOLATE 1% OPHTH SOLN 2 ML BTL OS SCH; +DUOVISC (0.50ML VISCOAT/0.85ML PROVISC) OPHTH KIT As Ordered ONE; +FLURBIPROFEN 0.03% OPHTH SOLN 2.5 ML OS SCH; +LIDOCAINE 1% SDV 5ML VIAL As Ordered ONE; +LR 1,000 ML IV SCH; +PHENYLEPHRINE 2.5% OPHTH SOL 2ML OS SCH; +PHENYLEPHRINE HCL 10 % OPHTH. SOL 5ML OS ONE; +UNRESOLVED CLARIFICATION ENTRY XX SCH
[2021-07-27] MEDS: TETRACAINE 0.5% OPHTH SOLN 4ML OS SCH (10:19)
[2021-07-27] MEDS ORDERED: fentaNYL 100 MCG/2 ML INJECTION (J3010) As Ordered ONE (10:49)
[2021-07-27] MEDS ORDERED: MIDAZOLAM INJ 2MG/2ML VIAL (J2250 PER 1MG) As Ordered ONE (10:49)
[2021-07-27] MEDS ORDERED: MAXITROL OPHTH SUSP 5 ML As Ordered ONE (11:14)
[2021-07-27] MEDS ORDERED: DUOVISC (0.50ML VISCOAT/0.85ML PROVISC) OPHTH KIT As Ordered ONE (11:17)
[2021-07-27 12:55] VITALS: BP 149/81
--- NOTE | 2021-07-27 16:04 | ROOPDOC ---
[facility] Report Of Operation Report of Operation DATE OF PROCEDURE: 07/27/21 PREPROCEDURE DIAGNOSES: Cataract left eye. POSTPROCEDURE DIAGNOSES: Same. PROCEDURE PERFORMED: Cataract extraction with intraocular lens implantation left eye. SURGEON: Ralph Araya MD [employer]INTENA[employer]CE SUPERVISOR: None ANESTHESIA: Local ESTIMATED BLOOD LOSS: None. COMPLICATIONS: None. SPECIMENS REMOVED: None DESCRIPTION OF PROCEDURE: The patient was brought to the operating room and prepped and draped in the usual sterile fashion and an eyelid speculum was inserted in the left eye. A paracentesis was made and the anterior chamber was inflated with non-preserved lidocaine. This was followed by injection of Viscoat. A groove was made in the superotemporal clear cornea which was tunneled forward with the crescent blade and the anterior chamber was entered with a 2.75 keratome. The cystotome was used to make an incision in the center of the capsule and a continuous curvilinear capsulorhexis was created. The lens was hydrodissected until it was found to rotate freely within the capsular bag. Phacoemulsification was then used to remove the lens in its entirety. Irrigation and aspiration were used to remove residual cortical material. The anterior chamber and capsular bag were reinflated with Provisc and a 15.0 diopter [id number] lens was injected into the capsular bag using the Devens injector. The lens was dialed into place using the Sinskey hook. Irrigation and aspiration were used to remove residual viscoelastic. The wound was stromally hydrated until it was found to be watertight and at an appropriate pressure. The eyelid speculum was removed from the eye and Maxitrol drops were placed over the left eye. The patient was transferred to the recovery room in stable condition and will follow up later today. The total CDE was 13.31 RALPH ARAYA MD Jul 27, 2021 16:04
== END 2021-07-27 13:02 | disposition home or self-care (01) ==
LOC: M SDC 09:41
PROVIDERS: ATTEND Ophthalmology
DX: H25.9 Unspecified age-related cataract (principal); E78.00 Pure hypercholesterolemia, unspecified; I99.9 Unspecified disorder of circulatory system; Z86.718 Personal history of other venous thrombosis and embolism; Z86.711 Personal history of pulmonary embolism; M54.9 Dorsalgia, unspecified; J44.9 Chronic obstructive pulmonary disease, unspecified; R73.09 Other abnormal glucose; Z79.52 Long term (current) use of systemic steroids; Z79.899 Other long term (current) drug therapy; Z79.01 Long term (current) use of anticoagulants
CPT/HCPCS: 66984; J2250; J3010; V2632

== ENCOUNTER → 2021-09-19 | Outpatient (REF) | payer MEDICARE ==
[~2021-09-19] MED LIST changes: -CYCLOPENTOLATE 1% OPHTH SOLN 2 ML BTL OS SCH; -DUOVISC (0.50ML VISCOAT/0.85ML PROVISC) OPHTH KIT As Ordered ONE; -FLURBIPROFEN 0.03% OPHTH SOLN 2.5 ML OS SCH; -LIDOCAINE 1% SDV 5ML VIAL As Ordered ONE; -LR 1,000 ML IV SCH; -PHENYLEPHRINE 2.5% OPHTH SOL 2ML OS SCH; -PHENYLEPHRINE HCL 10 % OPHTH. SOL 5ML OS ONE; -UNRESOLVED CLARIFICATION ENTRY XX SCH
== END ==
LOC: M LAB REF 12:09
PROVIDERS: ATTEND Internal Medicine
DX: M31.6 Other giant cell arteritis (principal)

== ENCOUNTER → 2021-10-03 | Outpatient (REF) | payer MEDICARE | LOC: M LAB REF 11:55 | PROVIDERS: ATTEND Internal Medicine | DX: M31.6 Other giant cell arteritis (principal) ==

== ENCOUNTER → 2021-10-24 | Outpatient (REF) | payer MEDICARE | LOC: M LAB REF 16:20 | PROVIDERS: ATTEND Internal Medicine | DX: M31.6 Other giant cell arteritis (principal) ==

== ENCOUNTER → 2021-11-07 | Outpatient (REF) | payer MEDICARE | LOC: M LAB REF 12:20 | PROVIDERS: ATTEND Internal Medicine | DX: M31.6 Other giant cell arteritis (principal) ==

== ENCOUNTER 2021-12-17 19:55 | Emergency (ER) | payer MEDICARE ==
[~2021-12-17] VITALS: Ht 180.3 cm; Wt 94.6 kg
[2021-12-17 20:43] LABS: BASO % 0.4 % (0.0-1.0); EOS % 0.2 % (0.0-3.0); HEMOGLOBIN 13.9 g/dl (13.5-17.5); LYMPH # 0.6 10^3/uL (1.5-5.0); LYMPH % 6.5 % (24.0-44.0); MEAN CORPUSCULAR HEMOGLOBIN 32.3 pg (27.0-33.0); MEAN CORPUSCULAR HGB CONC 33.1 g/dl (32.0-36.5); MEAN CORPUSCULAR VOLUME 97.4 fl (80.0-96.0); MONO # 1.2 10^3/uL (0.0-0.8); MONO % 13.3 % (2.0-8.0); NEUTROPHILS # 7.2 10^3/uL (1.5-8.5); NEUTROPHILS % 78.6 % (36.0-66.0); PLATELET COUNT, AUTOMATED 219 10^3/uL (150-450); RED BLOOD COUNT 4.31 10^6/uL (4.30-6.10); WHITE BLOOD COUNT 9.2 10^3/uL (4.0-10.0)
[2021-12-17 21:22] LABS: ALBUMIN 3.1 GM/DL (3.2-5.2); BILIRUBIN,TOTAL 0.4 MG/DL (0.2-1.0); CALCIUM LEVEL 8.1 MG/DL (8.8-10.2); CREATININE FOR GFR 1.3 MG/DL (0.70-1.30); GLOMERULAR FILTRATION RATE 56.3 (>35); MAGNESIUM LEVEL 1.7 MG/DL (1.8-2.4); POTASSIUM SERUM 4.3 MEQ/L (3.5-5.1); TOTAL PROTEIN 5.9 GM/DL (6.4-8.2)
[2021-12-17 22:30] VITALS: BP 140/69
[2021-12-17] MEDS ORDERED: NIRMATRELVIR/RITONAVIR CO-PACK (EMERGENCY USE AUTH) PO SCH (23:00)
[2021-12-18] MEDS ORDERED: NIRMATRELVIR/RITONAVIR CO-PACK (EMERGENCY USE AUTH) PO SCH (09:00)
== END 2021-12-18 00:05 | disposition home or self-care (01) ==
LOC: M ED 19:55 → EDBD 19:55 → M ED 12-18 00:05
DX: U07.1 COVID-19 (principal); Z86.718 Personal history of other venous thrombosis and embolism; E78.5 Hyperlipidemia, unspecified; H35.30 Unspecified macular degeneration; Z79.01 Long term (current) use of anticoagulants; Z79.899 Other long term (current) drug therapy

== ENCOUNTER → 2022-02-20 | Outpatient (REF) | payer MEDICARE | LOC: M LAB REF 17:37 | PROVIDERS: ATTEND Internal Medicine | DX: M31.6 Other giant cell arteritis (principal) ==

== ENCOUNTER → 2022-05-18 | Outpatient (REF) | payer MEDICARE | LOC: M LAB REF 16:13 | PROVIDERS: ATTEND Internal Medicine | DX: M31.6 Other giant cell arteritis (principal) ==

== ENCOUNTER → 2022-06-07 | Outpatient (REF) | payer MEDICARE | LOC: M LAB REF 12:11 | PROVIDERS: ATTEND Internal Medicine | DX: M31.6 Other giant cell arteritis (principal) ==

== ENCOUNTER → 2022-08-21 | Outpatient (REF) | payer MEDICARE | LOC: M LAB REF 16:12 | PROVIDERS: ATTEND Internal Medicine | DX: M31.6 Other giant cell arteritis (principal) ==

== ENCOUNTER → 2022-09-20 | Outpatient (REF) | payer MEDICARE | LOC: M LAB REF 11:17 | PROVIDERS: ATTEND Internal Medicine | DX: M31.6 Other giant cell arteritis (principal) ==

== ENCOUNTER → 2022-12-11 | Outpatient (REF) | payer MEDICARE | LOC: M LAB REF 17:00 | PROVIDERS: ATTEND Internal Medicine | DX: M31.6 Other giant cell arteritis (principal) ==

== ENCOUNTER → 2023-07-10 | Outpatient (CLI) | payer MEDICARE | LOC: M WUC 13:15 | PROVIDERS: ATTEND Internal Medicine | DX: M16.11 Unilateral primary osteoarthritis, right hip (principal); M51.26 Other intervertebral disc displacement, lumbar region ==

== ENCOUNTER 2024-05-05 17:33 | Inpatient (IN) | payer MEDICARE ==
[~2024-05-05] VITALS: Ht 180.3 cm; Wt 88.1 kg
[2024-05-05 18:14] LABS: BASO % 0.4 % (0.0-1.0); EOS # 0.1 10^3/uL (0.0-0.5); EOS % 1.5 % (0.0-3.0); HEMATOCRIT 38.5 % (42.0-52.0); LYMPH # 1.1 10^3/uL (1.5-5.0); LYMPH % 13.6 % (24.0-44.0); MEAN CORPUSCULAR HEMOGLOBIN 31.4 pg (27.0-33.0); MEAN CORPUSCULAR HGB CONC 33.8 g/dl (32.0-36.5); MONO # 1.1 10^3/uL (0.0-0.8); MONO % 13.3 % (2.0-8.0); NEUTROPHILS # 5.6 10^3/uL (1.5-8.5); NEUTROPHILS % 70.6 % (36.0-66.0); PLATELET COUNT, AUTOMATED 240 10^3/uL (150-450); RED BLOOD COUNT 4.14 10^6/uL (4.30-6.10); WHITE BLOOD COUNT 7.9 10^3/uL (4.0-10.0)
[2024-05-05 18:26] LABS: INR 1.32
[2024-05-05 18:38] LABS: BLOOD UREA NITROGEN 23 MG/DL (9-23); CALCIUM LEVEL 8.2 MG/DL (8.3-10.6); CARBON DIOXIDE LEVEL 24 MMOL/L (20-31); CHLORIDE LEVEL 104 MMOL/L (98-107); CREATININE FOR GFR 0.92 MG/DL (0.70-1.30); GLOMERULAR FILTRATION RATE > 60.0 (>35); GLUCOSE, FASTING 101 MG/DL (74-106); POTASSIUM SERUM 4.7 MMOL/L (3.5-5.1); SODIUM LEVEL 132 MMOL/L (136-145)
[2024-05-05] MEDS ORDERED: HOME MED LIST COMPLETE! XX SCH (19:25)
[2024-05-05] MEDS ORDERED: ACET650T15 PO (19:25)
[2024-05-05] MEDS ORDERED: THERTAB52 PO (19:25)
[2024-05-05] MEDS ORDERED: SERT25TA21 PO (19:25)
[2024-05-05] MEDS ORDERED: ELIQ2.5T PO (19:25)
[2024-05-05] MEDS ORDERED: DULC5TAB PO (19:25)
[2024-05-05] MEDS ORDERED: SENN-186 PO (19:25)
[2024-05-05] MEDS ORDERED: BUPR150T12 PO (19:25)
[2024-05-05 19:38] LABS: CK-MB VALUE MASS < 1.0 NG/ML (<3.6)
[2024-05-05 19:40] LABS: CPK CREATINE PHOSPHOKINASE 63 U/L (46-171); MB/CK RELATIVE INDEX 1.58 (< OR =4)
[2024-05-05 20:07] LABS: PARTIAL THROMBOPLASTIN TIME 36.2 SECONDS (24.8-34.2)
[2024-05-05] MEDS: ACETAMINOPHEN TAB 650MG DOSE (2X325MG) PO ONE (20:38)
[2024-05-05] MEDS: NS 1,000 ML IV ONE (20:39)
[2024-05-05] MEDS: BOOSTRIX VACCINE (TETANUS/DIPHTH/ACEL. PERTUSSIS) 0.5ML SYR IM.IMMUN ONE (20:41)
[2024-05-05 21:05] LABS: CK-MB VALUE MASS < 1.0 NG/ML (<3.6)
[2024-05-05 21:11] LABS: CPK CREATINE PHOSPHOKINASE 70 U/L (46-171); MB/CK RELATIVE INDEX 1.42 (< OR =4)
[2024-05-05 22:30] LABS: ALKALINE PHOSPHATASE 85 U/L (46-116); ALT/SGPT 20 U/L (7.0-40); AST/SGOT 23 U/L (<34); BILIRUBIN,DIRECT 0.2 MG/DL (<0.4); BILIRUBIN,TOTAL 0.5 MG/DL (0.3-1.2); TOTAL PROTEIN 6.6 G/DL (5.7-8.2)
[2024-05-06] MEDS: PIPERACILLIN/TAZOBACTAM SOD 4.5 GM in D5W MINI-BAG PLUS 50 ML IV ONE (00:09)
[2024-05-06] MEDS: NS 1,000 ML IV SCH (01:40)
[2024-05-06 08:40] VITALS: BP 153/72; TEMP 97.2; O2SAT 96
[2024-05-06] MEDS: buPROPion **XL** TABLET 150MG (WELLBUTRIN XL) PO SCH (08:43)
[2024-05-06] MEDS: APIXABAN 2.5 MG TAB (ELIQUIS) PO SCH (08:44)
[2024-05-06] MEDS: SERTRALINE HCL 25 MG TABLET PO SCH (08:44)
[2024-05-06] MEDS ORDERED: ONDANSETRON 4MG 2ML VIAL IV PRN ×2 (12:50→13:50)
[2024-05-06 14:49] VITALS: BP 136/81; TEMP 97.5; O2SAT 95
[2024-05-06] MEDS: ATORVASTATIN 20 MG TAB PO SCH (20:40)
[2024-05-06] MEDS: TAMSULOSIN 0.4 MG CAP PO SCH (20:40)
[2024-05-06] MEDS: ACETAMINOPHEN TAB 650MG DOSE (2X325MG) PO PRN (20:40)
[2024-05-07] VITALS (7 sets, daily range): BP systolic 94–176; BP diastolic 49–72; TEMP 97.7–98.7; O2SAT 96–98
[2024-05-07 08:22] LABS: HEMATOCRIT 36.1 % (42.0-52.0); HEMOGLOBIN 12.2 g/dl (13.5-17.5); MEAN CORPUSCULAR HEMOGLOBIN 31.5 pg (27.0-33.0); MEAN CORPUSCULAR HGB CONC 33.8 g/dl (32.0-36.5); MEAN CORPUSCULAR VOLUME 93.3 fl (80.0-96.0); PLATELET COUNT, AUTOMATED 224 10^3/uL (150-450); RED BLOOD COUNT 3.87 10^6/uL (4.30-6.10)
[2024-05-07 08:40] LABS: BLOOD UREA NITROGEN 15 MG/DL (9-23); CALCIUM LEVEL 7.9 MG/DL (8.3-10.6); CARBON DIOXIDE LEVEL 24 MMOL/L (20-31); CHLORIDE LEVEL 109 MMOL/L (98-107); CREATININE FOR GFR 0.85 MG/DL (0.70-1.30); GLOMERULAR FILTRATION RATE > 60.0 (>35); GLUCOSE, FASTING 86 MG/DL (74-106); POTASSIUM SERUM 4.1 MMOL/L (3.5-5.1); SODIUM LEVEL 137 MMOL/L (136-145)
[2024-05-08] VITALS (9 sets, daily range): BP systolic 78–152; BP diastolic 47–72; TEMP 97.2–98.6; O2SAT 92–98
[2024-05-08 05:55] LABS: HEMATOCRIT 36.5 % (42.0-52.0); HEMOGLOBIN 12.1 g/dl (13.5-17.5); MEAN CORPUSCULAR HEMOGLOBIN 30.9 pg (27.0-33.0); MEAN CORPUSCULAR HGB CONC 33.2 g/dl (32.0-36.5); MEAN CORPUSCULAR VOLUME 93.4 fl (80.0-96.0); PLATELET COUNT, AUTOMATED 219 10^3/uL (150-450); RED BLOOD COUNT 3.91 10^6/uL (4.30-6.10); WHITE BLOOD COUNT 8.3 10^3/uL (4.0-10.0)
[2024-05-08 06:17] LABS: BLOOD UREA NITROGEN 12 MG/DL (9-23); CALCIUM LEVEL 8.3 MG/DL (8.3-10.6); CARBON DIOXIDE LEVEL 25 MMOL/L (20-31); CHLORIDE LEVEL 109 MMOL/L (98-107); CREATININE FOR GFR 0.75 MG/DL (0.70-1.30); GLOMERULAR FILTRATION RATE > 60.0 (>35); GLUCOSE, FASTING 83 MG/DL (74-106); POTASSIUM SERUM 4.2 MMOL/L (3.5-5.1); SODIUM LEVEL 139 MMOL/L (136-145)
[2024-05-08] MEDS: LR 1,000 ML IV SCH (17:50)
[2024-05-08] MEDS ORDERED: CALCIUM CARBONATE 500 MG CHEW U/D PO PRN (18:55)
[2024-05-08] MEDS: CALCIUM CARBONATE 500 MG CHEW U/D PO ONE (18:59)
[2024-05-08] MEDS: FINASTERIDE 5MG TAB PO SCH (20:02)
[2024-05-09 00:13] VITALS: BP 150/68; TEMP 98; O2SAT 94
[2024-05-09 05:03] VITALS: BP 166/72; TEMP 97.7; O2SAT 94
[2024-05-09 08:20] VITALS: BP_SYST 104; BP_SYST 165; BP_SYST 170; BP_DIAS 61; BP_DIAS 70; BP_DIAS 73; TEMP 97.4
[2024-05-09 12:00] VITALS: BP_SYST 158; BP_SYST 181; BP_SYST 79; BP_DIAS 48; BP_DIAS 70; BP_DIAS 77; TEMP 98
[2024-05-09 12:45] VITALS: BP 170/73
[2024-05-09 20:00] VITALS: BP_SYST 108; BP_SYST 118; BP_SYST 162; BP_DIAS 58; BP_DIAS 70; TEMP 98.9; O2SAT 96
[2024-05-10 04:00] VITALS: BP_SYST 109; BP_SYST 133; BP_SYST 76; BP_DIAS 42; BP_DIAS 55; BP_DIAS 58; TEMP 98.5; O2SAT 94
[2024-05-10 07:41] VITALS: BP 125/58; TEMP 97.6; O2SAT 96
[2024-05-10] MEDS: MIDODRINE 2.5 MG TAB PO SCH (07:54)
[2024-05-10 10:08] VITALS: BP_SYST 127; BP_SYST 154; BP_SYST 90; BP_DIAS 53; BP_DIAS 58; BP_DIAS 65
[2024-05-10 15:48] VITALS: BP 136/63; TEMP 97.4; O2SAT 96
[2024-05-10 19:30] VITALS: BP 153/80; TEMP 97.8; O2SAT 97
[2024-05-10 20:00] VITALS: BP_SYST 111; BP_SYST 149; BP_SYST 176; BP_DIAS 56; BP_DIAS 67; BP_DIAS 74
[2024-05-11 04:30] VITALS: BP 140/60; TEMP 98.1; O2SAT 94
[2024-05-11 07:56] VITALS: BP_SYST 136; BP_SYST 188; BP_SYST 96; BP_DIAS 52; BP_DIAS 67; BP_DIAS 79
[2024-05-11 07:57] VITALS: BP 136/67; TEMP 97.7; O2SAT 98
[2024-05-11] MEDS: MIDODRINE 5 MG TAB PO SCH (12:02)
[2024-05-11 16:00] VITALS: BP 159/69; TEMP 98.9; O2SAT 91
[2024-05-11 20:18] VITALS: BP_SYST 129; BP_SYST 159; BP_SYST 82; BP_DIAS 51; BP_DIAS 59; BP_DIAS 70
[2024-05-11 20:29] VITALS: BP 159/70; TEMP 97.4; O2SAT 94
[2024-05-12] VITALS (8 sets, daily range): BP systolic 73–171; BP diastolic 51–72; TEMP 97.2–98.7; O2SAT 95–96
[2024-05-12 07:30] LABS: HEMATOCRIT 38.2 % (42.0-52.0); HEMOGLOBIN 12.9 g/dl (13.5-17.5); MEAN CORPUSCULAR HEMOGLOBIN 31.2 pg (27.0-33.0); MEAN CORPUSCULAR HGB CONC 33.8 g/dl (32.0-36.5); MEAN CORPUSCULAR VOLUME 92.5 fl (80.0-96.0); PLATELET COUNT, AUTOMATED 258 10^3/uL (150-450); RED BLOOD COUNT 4.13 10^6/uL (4.30-6.10); WHITE BLOOD COUNT 8.5 10^3/uL (4.0-10.0)
[2024-05-12 07:56] LABS: ALBUMIN 2.7 G/DL (3.2-5.2); ALKALINE PHOSPHATASE 77 U/L (46-116); ALT/SGPT 25 U/L (7.0-40); AST/SGOT 22 U/L (<34); BILIRUBIN,TOTAL 0.4 MG/DL (0.3-1.2); BLOOD UREA NITROGEN 13 MG/DL (9-23); CALCIUM LEVEL 8.4 MG/DL (8.3-10.6); CARBON DIOXIDE LEVEL 25 MMOL/L (20-31); CHLORIDE LEVEL 106 MMOL/L (98-107); CREATININE FOR GFR 0.85 MG/DL (0.70-1.30); GLOMERULAR FILTRATION RATE > 60.0 (>35); GLUCOSE, FASTING 76 MG/DL (74-106); POTASSIUM SERUM 4.3 MMOL/L (3.5-5.1); SODIUM LEVEL 137 MMOL/L (136-145); TOTAL PROTEIN 6.2 G/DL (5.7-8.2)
[2024-05-13 03:36] VITALS: BP 138/54; TEMP 97.8; O2SAT 95
[2024-05-13 07:27] VITALS: BP 182/88; TEMP 97.6; O2SAT 95
[2024-05-13 10:00] VITALS: BP_SYST 108; BP_SYST 179; BP_SYST 76; BP_DIAS 48; BP_DIAS 56; BP_DIAS 72
[2024-05-13 12:19] VITALS: BP 170/72; TEMP 97.8; O2SAT 96
[2024-05-13 15:18] VITALS: BP 144/67; TEMP 97.6; O2SAT 97
[2024-05-13 19:37] VITALS: BP 146/63; TEMP 97.7; O2SAT 91
[2024-05-14 03:45] VITALS: BP 150/69; TEMP 98.4; O2SAT 92
[2024-05-14 08:21] VITALS: BP_SYST 107; BP_SYST 154; BP_SYST 65; BP_DIAS 43; BP_DIAS 59; BP_DIAS 67
[2024-05-14 08:26] VITALS: BP 120/57; TEMP 97.1; O2SAT 92
[2024-05-14 16:11] VITALS: BP 166/71; TEMP 97.5; O2SAT 93
[2024-05-14 20:03] VITALS: BP_SYST 107; BP_SYST 145; BP_SYST 76; BP_DIAS 52; BP_DIAS 55; BP_DIAS 65
[2024-05-15] VITALS (7 sets, daily range): BP systolic 85–147; BP diastolic 47–66; TEMP 97–98.8; O2SAT 92–96
[2024-05-15 07:28] LABS: HEMATOCRIT 40.5 % (42.0-52.0); HEMOGLOBIN 13.3 g/dl (13.5-17.5); MEAN CORPUSCULAR HEMOGLOBIN 30.6 pg (27.0-33.0); MEAN CORPUSCULAR HGB CONC 32.8 g/dl (32.0-36.5); MEAN CORPUSCULAR VOLUME 93.3 fl (80.0-96.0); PLATELET COUNT, AUTOMATED 280 10^3/uL (150-450); RED BLOOD COUNT 4.34 10^6/uL (4.30-6.10); WHITE BLOOD COUNT 8.4 10^3/uL (4.0-10.0)
[2024-05-15 07:39] LABS: BLOOD UREA NITROGEN 16 MG/DL (9-23); CALCIUM LEVEL 8.4 MG/DL (8.3-10.6); CARBON DIOXIDE LEVEL 26 MMOL/L (20-31); CHLORIDE LEVEL 105 MMOL/L (98-107); CREATININE FOR GFR 0.87 MG/DL (0.70-1.30); GLOMERULAR FILTRATION RATE > 60.0 (>35); GLUCOSE, FASTING 80 MG/DL (74-106); POTASSIUM SERUM 4.2 MMOL/L (3.5-5.1); SODIUM LEVEL 136 MMOL/L (136-145)
[2024-05-15] MEDS: FLUDROCORTISONE ACETATE 0.1 MG TAB PO SCH (08:20)
[2024-05-16 06:02] LABS: BASO # 0.1 10^3/uL (0.0-0.2); BASO % 0.8 % (0.0-1.0); EOS # 0.7 10^3/uL (0.0-0.5); EOS % 7.2 % (0.0-3.0); HEMATOCRIT 39.4 % (42.0-52.0); LYMPH # 2.4 10^3/uL (1.5-5.0); LYMPH % 25.7 % (24.0-44.0); MEAN CORPUSCULAR HEMOGLOBIN 30.4 pg (27.0-33.0); MEAN CORPUSCULAR VOLUME 92.3 fl (80.0-96.0); MONO % 11.2 % (2.0-8.0); NEUTROPHILS # 5.1 10^3/uL (1.5-8.5); NEUTROPHILS % 54.6 % (36.0-66.0); PLATELET COUNT, AUTOMATED 278 10^3/uL (150-450); RED BLOOD COUNT 4.27 10^6/uL (4.30-6.10); WHITE BLOOD COUNT 9.3 10^3/uL (4.0-10.0)
[2024-05-16 06:25] LABS: BLOOD UREA NITROGEN 17 MG/DL (9-23); CALCIUM LEVEL 8.1 MG/DL (8.3-10.6); CARBON DIOXIDE LEVEL 24 MMOL/L (20-31); CHLORIDE LEVEL 105 MMOL/L (98-107); CREATININE FOR GFR 0.91 MG/DL (0.70-1.30); GLOMERULAR FILTRATION RATE > 60.0 (>35); GLUCOSE, FASTING 81 MG/DL (74-106); MAGNESIUM LEVEL 1.9 MG/DL (1.8-2.4); POTASSIUM SERUM 4.2 MMOL/L (3.5-5.1); SODIUM LEVEL 135 MMOL/L (136-145)
[2024-05-16 12:00] VITALS: BP 125/55; TEMP 97.7; O2SAT 95
[2024-05-16 19:50] VITALS: BP 142/64; TEMP 97.5; O2SAT 92
[2024-05-17 03:51] VITALS: BP 130/65; TEMP 97.7; O2SAT 94
[2024-05-17 06:20] LABS: BASO # 0.1 10^3/uL (0.0-0.2); BASO % 0.8 % (0.0-1.0); EOS # 0.6 10^3/uL (0.0-0.5); EOS % 7.1 % (0.0-3.0); HEMOGLOBIN 13.2 g/dl (13.5-17.5); LYMPH % 23.9 % (24.0-44.0); MEAN CORPUSCULAR HEMOGLOBIN 30.4 pg (27.0-33.0); MEAN CORPUSCULAR VOLUME 92.2 fl (80.0-96.0); MONO # 0.9 10^3/uL (0.0-0.8); MONO % 10.4 % (2.0-8.0); NEUTROPHILS # 4.9 10^3/uL (1.5-8.5); NEUTROPHILS % 57.6 % (36.0-66.0); PLATELET COUNT, AUTOMATED 297 10^3/uL (150-450); RED BLOOD COUNT 4.34 10^6/uL (4.30-6.10); WHITE BLOOD COUNT 8.5 10^3/uL (4.0-10.0)
[2024-05-17 06:47] LABS: BLOOD UREA NITROGEN 16 MG/DL (9-23); CALCIUM LEVEL 8.5 MG/DL (8.3-10.6); CARBON DIOXIDE LEVEL 24 MMOL/L (20-31); CHLORIDE LEVEL 107 MMOL/L (98-107); CREATININE FOR GFR 0.89 MG/DL (0.70-1.30); GLOMERULAR FILTRATION RATE > 60.0 (>35); GLUCOSE, FASTING 76 MG/DL (74-106); MAGNESIUM LEVEL 1.9 MG/DL (1.8-2.4); POTASSIUM SERUM 4.4 MMOL/L (3.5-5.1); SODIUM LEVEL 137 MMOL/L (136-145)
[2024-05-17 11:15] VITALS: BP_SYST 108; BP_SYST 146; BP_SYST 68; BP_DIAS 42; BP_DIAS 60; BP_DIAS 72
[2024-05-17 12:00] VITALS: BP 139/61; TEMP 96.8; O2SAT 93
[2024-05-17] MEDS: NS 1,000 ML IV ONE (17:03)
[2024-05-17 20:20] VITALS: BP 140/61; TEMP 97.7; O2SAT 93
[2024-05-18 04:09] VITALS: BP 141/61; TEMP 97.5; O2SAT 96
[2024-05-18 05:34] LABS: BASO # 0.1 10^3/uL (0.0-0.2); BASO % 0.9 % (0.0-1.0); EOS # 0.6 10^3/uL (0.0-0.5); EOS % 6.9 % (0.0-3.0); HEMATOCRIT 38.7 % (42.0-52.0); HEMOGLOBIN 12.9 g/dl (13.5-17.5); LYMPH # 2.1 10^3/uL (1.5-5.0); LYMPH % 22.9 % (24.0-44.0); MEAN CORPUSCULAR HEMOGLOBIN 30.6 pg (27.0-33.0); MEAN CORPUSCULAR HGB CONC 33.3 g/dl (32.0-36.5); MEAN CORPUSCULAR VOLUME 91.7 fl (80.0-96.0); MONO # 0.9 10^3/uL (0.0-0.8); MONO % 10.1 % (2.0-8.0); NEUTROPHILS # 5.3 10^3/uL (1.5-8.5); NEUTROPHILS % 58.8 % (36.0-66.0); PLATELET COUNT, AUTOMATED 303 10^3/uL (150-450); RED BLOOD COUNT 4.22 10^6/uL (4.30-6.10); WHITE BLOOD COUNT 9.1 10^3/uL (4.0-10.0)
[2024-05-18 06:04] LABS: BLOOD UREA NITROGEN 14 MG/DL (9-23); CALCIUM LEVEL 8.4 MG/DL (8.3-10.6); CARBON DIOXIDE LEVEL 23 MMOL/L (20-31); CHLORIDE LEVEL 106 MMOL/L (98-107); CREATININE FOR GFR 0.82 MG/DL (0.70-1.30); GLOMERULAR FILTRATION RATE > 60.0 (>35); GLUCOSE, FASTING 75 MG/DL (74-106); MAGNESIUM LEVEL 1.8 MG/DL (1.8-2.4); POTASSIUM SERUM 4.3 MMOL/L (3.5-5.1); SODIUM LEVEL 137 MMOL/L (136-145)
[2024-05-18 07:56] VITALS: BP_SYST 138; BP_SYST 139; BP_SYST 86; BP_DIAS 51; BP_DIAS 63; BP_DIAS 64
[2024-05-18] MEDS: FLUDROCORTISONE ACETATE 0.1 MG TAB PO SCH (08:31)
[2024-05-18] MEDS: MIDODRINE 5 MG TAB PO SCH (08:32)
[2024-05-18] MEDS: NS 1,000 ML IV ONE (08:33)
[2024-05-18 10:00] VITALS: BP 155/64; TEMP 97.3; O2SAT 95
[2024-05-18 11:58] VITALS: BP 155/64
[2024-05-18 16:55] VITALS: BP 139/64
[2024-05-18 20:16] VITALS: BP 126/59; TEMP 97.5; O2SAT 92
[2024-05-19] VITALS (7 sets, daily range): BP systolic 77–154; BP diastolic 45–75; TEMP 97.2–97.5; O2SAT 93–95
[2024-05-19 05:19] LABS: BASO # 0.1 10^3/uL (0.0-0.2); EOS # 0.6 10^3/uL (0.0-0.5); EOS % 6.1 % (0.0-3.0); HEMATOCRIT 38.7 % (42.0-52.0); HEMOGLOBIN 12.8 g/dl (13.5-17.5); LYMPH # 2.2 10^3/uL (1.5-5.0); LYMPH % 22.8 % (24.0-44.0); MEAN CORPUSCULAR HEMOGLOBIN 30.7 pg (27.0-33.0); MEAN CORPUSCULAR HGB CONC 33.1 g/dl (32.0-36.5); MEAN CORPUSCULAR VOLUME 92.8 fl (80.0-96.0); MONO % 10.1 % (2.0-8.0); NEUTROPHILS # 5.6 10^3/uL (1.5-8.5); NEUTROPHILS % 59.6 % (36.0-66.0); PLATELET COUNT, AUTOMATED 299 10^3/uL (150-450); RED BLOOD COUNT 4.17 10^6/uL (4.30-6.10); WHITE BLOOD COUNT 9.5 10^3/uL (4.0-10.0)
[2024-05-19 05:47] LABS: BLOOD UREA NITROGEN 16 MG/DL (9-23); CALCIUM LEVEL 8.5 MG/DL (8.3-10.6); CARBON DIOXIDE LEVEL 23 MMOL/L (20-31); CHLORIDE LEVEL 107 MMOL/L (98-107); CREATININE FOR GFR 0.87 MG/DL (0.70-1.30); GLOMERULAR FILTRATION RATE > 60.0 (>35); GLUCOSE, FASTING 74 MG/DL (74-106); MAGNESIUM LEVEL 1.8 MG/DL (1.8-2.4); POTASSIUM SERUM 4.4 MMOL/L (3.5-5.1); SODIUM LEVEL 138 MMOL/L (136-145)
[2024-05-20 04:00] VITALS: BP 157/70; TEMP 97.7; O2SAT 97
[2024-05-20 05:59] LABS: BASO # 0.1 10^3/uL (0.0-0.2); BASO % 0.9 % (0.0-1.0); EOS # 0.7 10^3/uL (0.0-0.5); EOS % 6.7 % (0.0-3.0); HEMATOCRIT 38.6 % (42.0-52.0); HEMOGLOBIN 12.8 g/dl (13.5-17.5); LYMPH # 2.3 10^3/uL (1.5-5.0); LYMPH % 23.4 % (24.0-44.0); MEAN CORPUSCULAR HEMOGLOBIN 30.5 pg (27.0-33.0); MEAN CORPUSCULAR HGB CONC 33.2 g/dl (32.0-36.5); MEAN CORPUSCULAR VOLUME 92.1 fl (80.0-96.0); MONO # 0.9 10^3/uL (0.0-0.8); MONO % 9.4 % (2.0-8.0); NEUTROPHILS # 5.9 10^3/uL (1.5-8.5); NEUTROPHILS % 59.3 % (36.0-66.0); PLATELET COUNT, AUTOMATED 298 10^3/uL (150-450); RED BLOOD COUNT 4.19 10^6/uL (4.30-6.10); WHITE BLOOD COUNT 9.9 10^3/uL (4.0-10.0)
[2024-05-20 06:24] LABS: BLOOD UREA NITROGEN 16 MG/DL (9-23); CALCIUM LEVEL 8.3 MG/DL (8.3-10.6); CARBON DIOXIDE LEVEL 24 MMOL/L (20-31); CHLORIDE LEVEL 107 MMOL/L (98-107); CREATININE FOR GFR 0.88 MG/DL (0.70-1.30); GLOMERULAR FILTRATION RATE > 60.0 (>35); GLUCOSE, FASTING 76 MG/DL (74-106); MAGNESIUM LEVEL 1.9 MG/DL (1.8-2.4); SODIUM LEVEL 137 MMOL/L (136-145)
[2024-05-20] MEDS ORDERED: MIDO10TA PO (09:15)
[2024-05-20] MEDS ORDERED: FLUD0.1T PO (09:15)
== END 2024-05-20 11:26 | DRG 312 ==
LOC: M ED 17:33 → EDBD 17:33 → M ED INP 17:34 → M PCU 05-07 06:16 → OBSVTOIN 05-12 07:21 → M MSPAV 05-15 21:37
PROVIDERS: ADMIT Internal Medicine; ATTEND Internal Medicine
DX: I95.1 Orthostatic hypotension (principal); E87.1 Hypo-osmolality and hyponatremia; E78.5 Hyperlipidemia, unspecified; K59.09 Other constipation; R29.6 Repeated falls; N40.1 Benign prostatic hyperplasia with lower urinary tract symptoms; F32.A Depression, unspecified; R31.9 Hematuria, unspecified; R26.9 Unspecified abnormalities of gait and mobility; S50.02XA Contusion of left elbow, initial encounter; W19.XXXA Unspecified fall, initial encounter; Y92.129 Unspecified place in nursing home as the place of occurrence of the external cause; R33.9 Retention of urine, unspecified; R50.9 Fever, unspecified; Z79.899 Other long term (current) drug therapy; Z86.711 Personal history of pulmonary embolism; Z86.718 Personal history of other venous thrombosis and embolism; Z79.01 Long term (current) use of anticoagulants

== ENCOUNTER → 2024-05-22 | Outpatient (REF) ==
[~2024-05-22] MED LIST changes: +ACET650T15 PO; +BUPR150T12 PO; +DULC5TAB PO; +ELIQ2.5T PO; +FLUD0.1T PO; +MIDO10TA PO; +SENN-186 PO; +SERT25TA21 PO; +THERTAB52 PO
[2024-05-22 08:48] LABS: HEMATOCRIT 37.8 % (42.0-52.0); HEMOGLOBIN 12.4 g/dl (13.5-17.5); MEAN CORPUSCULAR HEMOGLOBIN 30.6 pg (27.0-33.0); MEAN CORPUSCULAR HGB CONC 32.8 g/dl (32.0-36.5); MEAN CORPUSCULAR VOLUME 93.3 fl (80.0-96.0); PLATELET COUNT, AUTOMATED 304 10^3/uL (150-450); RED BLOOD COUNT 4.05 10^6/uL (4.30-6.10); WHITE BLOOD COUNT 8.9 10^3/uL (4.0-10.0)
[2024-05-22 09:20] LABS: BLOOD UREA NITROGEN 16 MG/DL (9-23); CALCIUM LEVEL 8.4 MG/DL (8.3-10.6); CARBON DIOXIDE LEVEL 26 MMOL/L (20-31); CHLORIDE LEVEL 107 MMOL/L (98-107); GLOMERULAR FILTRATION RATE > 60.0 (>35); GLUCOSE, FASTING 76 MG/DL (74-106); POTASSIUM SERUM 4.3 MMOL/L (3.5-5.1); SODIUM LEVEL 139 MMOL/L (136-145)
== END ==
PROVIDERS: ATTEND Internal Medicine
DX: I10 Essential (primary) hypertension (principal)

== ENCOUNTER → 2024-05-29 | Outpatient (REF) ==
[2024-05-29 09:21] LABS: HEMATOCRIT 40.1 % (42.0-52.0); HEMOGLOBIN 13.1 g/dl (13.5-17.5); MEAN CORPUSCULAR HEMOGLOBIN 30.4 pg (27.0-33.0); MEAN CORPUSCULAR HGB CONC 32.7 g/dl (32.0-36.5); PLATELET COUNT, AUTOMATED 283 10^3/uL (150-450); RED BLOOD COUNT 4.31 10^6/uL (4.30-6.10); WHITE BLOOD COUNT 8.2 10^3/uL (4.0-10.0)
[2024-05-29 09:27] LABS: BLOOD UREA NITROGEN 14 MG/DL (9-23); CALCIUM LEVEL 8.8 MG/DL (8.3-10.6); CARBON DIOXIDE LEVEL 27 MMOL/L (20-31); CHLORIDE LEVEL 107 MMOL/L (98-107); CREATININE FOR GFR 0.82 MG/DL (0.70-1.30); GLOMERULAR FILTRATION RATE > 60.0 (>35); GLUCOSE, FASTING 73 MG/DL (74-106); POTASSIUM SERUM 4.3 MMOL/L (3.5-5.1); SODIUM LEVEL 139 MMOL/L (136-145)
== END ==
PROVIDERS: ATTEND Internal Medicine
DX: I10 Essential (primary) hypertension (principal)

== ENCOUNTER → 2024-07-01 | Outpatient (REF) ==
[~2024-07-01] MED LIST changes: -MIDO10TA PO; +MIDO10TA3 PO
[2024-07-01 11:14] LABS: HEMATOCRIT 42.1 % (42.0-52.0); HEMOGLOBIN 13.7 g/dl (13.5-17.5); MEAN CORPUSCULAR HEMOGLOBIN 30.9 pg (27.0-33.0); MEAN CORPUSCULAR HGB CONC 32.5 g/dl (32.0-36.5); PLATELET COUNT, AUTOMATED 265 10^3/uL (150-450); RED BLOOD COUNT 4.43 10^6/uL (4.30-6.10); WHITE BLOOD COUNT 7.6 10^3/uL (4.0-10.0)
[2024-07-01 11:51] LABS: BLOOD UREA NITROGEN 11 MG/DL (9-23); CALCIUM LEVEL 8.9 MG/DL (8.3-10.6); CARBON DIOXIDE LEVEL 29 MMOL/L (20-31); CHLORIDE LEVEL 103 MMOL/L (98-107); CREATININE FOR GFR 0.76 MG/DL (0.70-1.30); GLOMERULAR FILTRATION RATE > 60.0 (>35); GLUCOSE, FASTING 79 MG/DL (74-106); POTASSIUM SERUM 4.3 MMOL/L (3.5-5.1); SODIUM LEVEL 139 MMOL/L (136-145)
== END ==
PROVIDERS: ATTEND Internal Medicine
DX: I95.9 Hypotension, unspecified (principal)

== ENCOUNTER 2024-07-23 21:53 | Emergency (ER) | payer MEDICARE ==
[~2024-07-23] VITALS: Ht 180.3 cm; Wt 89.5 kg
[2024-07-23 22:07] VITALS: TEMP 99.3
[2024-07-23] MEDS ORDERED: LABETALOL 100MG/20ML VIAL IV STA (23:01)
[2024-07-23 23:04] LABS: BASO % 0.4 % (0.0-1.0); EOS # 0.1 10^3/uL (0.0-0.5); HEMATOCRIT 41.7 % (42.0-52.0); LYMPH # 1.3 10^3/uL (1.5-5.0); LYMPH % 12.2 % (24.0-44.0); MEAN CORPUSCULAR HEMOGLOBIN 31.6 pg (27.0-33.0); MEAN CORPUSCULAR HGB CONC 33.6 g/dl (32.0-36.5); MEAN CORPUSCULAR VOLUME 94.1 fl (80.0-96.0); MONO # 0.8 10^3/uL (0.0-0.8); MONO % 7.9 % (2.0-8.0); NEUTROPHILS # 8.2 10^3/uL (1.5-8.5); NEUTROPHILS % 78.2 % (36.0-66.0); PLATELET COUNT, AUTOMATED 241 10^3/uL (150-450); RED BLOOD COUNT 4.43 10^6/uL (4.30-6.10); WHITE BLOOD COUNT 10.5 10^3/uL (4.0-10.0)
[2024-07-23 23:16] LABS: INR 1.05; PARTIAL THROMBOPLASTIN TIME 30.8 SECONDS (24.8-34.2)
[2024-07-23 23:37] LABS: BLOOD UREA NITROGEN 16 MG/DL (9-23); CALCIUM LEVEL 8.9 MG/DL (8.3-10.6); CARBON DIOXIDE LEVEL 27 MMOL/L (20-31); CHLORIDE LEVEL 100 MMOL/L (98-107); CK-MB VALUE MASS < 1.0 NG/ML (<3.6); CPK CREATINE PHOSPHOKINASE 95 U/L (46-171); CREATININE FOR GFR 0.73 MG/DL (0.70-1.30); GLOMERULAR FILTRATION RATE > 60.0 (>35); GLUCOSE, FASTING 112 MG/DL (74-106); MB/CK RELATIVE INDEX 1.05 (< OR =4); POTASSIUM SERUM 4.1 MMOL/L (3.5-5.1); SODIUM LEVEL 136 MMOL/L (136-145)
[2024-07-23] MEDS: NS 500 ML IV ONE (23:40)
[2024-07-24 00:57] LABS: MB/CK RELATIVE INDEX 0.9 (< OR =4)
[2024-07-24] MEDS: MIDODRINE 5 MG TAB PO ONE (03:00)
[2024-07-24] MEDS ORDERED: BISA10SU PR (04:44)
[2024-07-24] MEDS ORDERED: MIDO10TA3 PO (04:44)
[2024-07-24] MEDS ORDERED: FLUD0.1T PO (04:44)
[2024-07-24] MEDS ORDERED: SENN-123 PO (04:44)
[2024-07-24] MEDS ORDERED: BUPR-365 PO (04:44)
[2024-07-24 04:45] VITALS: BP 172/74; O2SAT 96
[2024-07-24] MEDS ORDERED: HOME MED LIST COMPLETE! XX SCH (04:45)
== END 2024-07-24 05:06 | disposition home or self-care (01) ==
LOC: M ED 21:53 → EDBD 21:53 → M ED 07-24 05:06
DX: I95.1 Orthostatic hypotension (principal); I44.0 Atrioventricular block, first degree; E78.5 Hyperlipidemia, unspecified; Z79.1 Long term (current) use of non-steroidal anti-inflammatories (NSAID); Z79.01 Long term (current) use of anticoagulants; Z79.899 Other long term (current) drug therapy; Z79.810 Long term (current) use of selective estrogen receptor modulators (SERMs)

== ENCOUNTER → 2024-08-03 | Outpatient (REF) ==
[~2024-08-03] MED LIST changes: +BISA10SU PR; +BUPR-365 PO; +SENN-123 PO
[2024-08-03 09:43] LABS: HEMATOCRIT 38.9 % (42.0-52.0); HEMOGLOBIN 12.4 g/dl (13.5-17.5); MEAN CORPUSCULAR HEMOGLOBIN 30.7 pg (27.0-33.0); MEAN CORPUSCULAR HGB CONC 31.9 g/dl (32.0-36.5); MEAN CORPUSCULAR VOLUME 96.3 fl (80.0-96.0); PLATELET COUNT, AUTOMATED 287 10^3/uL (150-450); RED BLOOD COUNT 4.04 10^6/uL (4.30-6.10); WHITE BLOOD COUNT 7.5 10^3/uL (4.0-10.0)
[2024-08-03 10:13] LABS: BLOOD UREA NITROGEN 15 MG/DL (9-23); CALCIUM LEVEL 8.4 MG/DL (8.3-10.6); CARBON DIOXIDE LEVEL 27 MMOL/L (20-31); CHLORIDE LEVEL 104 MMOL/L (98-107); CREATININE FOR GFR 0.73 MG/DL (0.70-1.30); GLOMERULAR FILTRATION RATE > 60.0 (>35); GLUCOSE, FASTING 99 MG/DL (74-106); POTASSIUM SERUM 4.1 MMOL/L (3.5-5.1); SODIUM LEVEL 139 MMOL/L (136-145)
== END ==
PROVIDERS: ATTEND Internal Medicine
DX: I10 Essential (primary) hypertension (principal)

== ENCOUNTER → 2024-08-14 | Outpatient (CLI) | payer MEDICARE | LOC: M RAD 13:18 | PROVIDERS: ATTEND Physician Assistant | DX: M79.604 Pain in right leg (principal) ==

== ENCOUNTER → 2024-08-24 | Outpatient (REF) | payer MEDICARE ==
[2024-08-24 15:15] LABS: HEMATOCRIT 36.2 % (42.0-52.0); HEMOGLOBIN 11.5 g/dl (13.5-17.5); MEAN CORPUSCULAR HEMOGLOBIN 30.7 pg (27.0-33.0); MEAN CORPUSCULAR HGB CONC 31.8 g/dl (32.0-36.5); MEAN CORPUSCULAR VOLUME 96.5 fl (80.0-96.0); PLATELET COUNT, AUTOMATED 434 10^3/uL (150-450); RED BLOOD COUNT 3.75 10^6/uL (4.30-6.10); WHITE BLOOD COUNT 8.4 10^3/uL (4.0-10.0)
[2024-08-24 15:41] LABS: BLOOD UREA NITROGEN 15 MG/DL (9-23); CALCIUM LEVEL 7.8 MG/DL (8.3-10.6); CARBON DIOXIDE LEVEL 26 MMOL/L (20-31); CHLORIDE LEVEL 106 MMOL/L (98-107); CREATININE FOR GFR 0.73 MG/DL (0.70-1.30); GLOMERULAR FILTRATION RATE > 60.0 (>35); GLUCOSE, FASTING 56 MG/DL (74-106); POTASSIUM SERUM 4.4 MMOL/L (3.5-5.1); SODIUM LEVEL 140 MMOL/L (136-145)
== END ==
PROVIDERS: ATTEND Internal Medicine
DX: I48.91 Unspecified atrial fibrillation (principal); I95.1 Orthostatic hypotension

== ENCOUNTER → 2024-08-25 | Outpatient (REF) | payer MEDICARE | PROVIDERS: ATTEND Physician Assistant | DX: R22.31 Localized swelling, mass and lump, right upper limb (principal) ==

== ENCOUNTER → 2024-09-02 | Outpatient (REF) ==
[2024-09-02 15:56] LABS: HEMATOCRIT 37.9 % (42.0-52.0); MEAN CORPUSCULAR HEMOGLOBIN 30.5 pg (27.0-33.0); MEAN CORPUSCULAR HGB CONC 31.7 g/dl (32.0-36.5); MEAN CORPUSCULAR VOLUME 96.4 fl (80.0-96.0); PLATELET COUNT, AUTOMATED 329 10^3/uL (150-450); RED BLOOD COUNT 3.93 10^6/uL (4.30-6.10); WHITE BLOOD COUNT 7.1 10^3/uL (4.0-10.0)
[2024-09-02 16:20] LABS: BLOOD UREA NITROGEN 15 MG/DL (9-23); CARBON DIOXIDE LEVEL 28 MMOL/L (20-31); CHLORIDE LEVEL 104 MMOL/L (98-107); CREATININE FOR GFR 0.74 MG/DL (0.70-1.30); GLOMERULAR FILTRATION RATE > 60.0 (>35); GLUCOSE, FASTING 107 MG/DL (74-106); POTASSIUM SERUM 4.1 MMOL/L (3.5-5.1); SODIUM LEVEL 140 MMOL/L (136-145)
== END ==
PROVIDERS: ATTEND Internal Medicine
DX: I10 Essential (primary) hypertension (principal)

== ENCOUNTER 2024-09-27 21:30 | Emergency (ER) | payer MEDICARE ==
[~2024-09-27] VITALS: Ht 180.3 cm; Wt 82.1 kg
[2024-09-27 23:21] LABS: BASO # 0.1 10^3/uL (0.0-0.2); BASO % 0.5 % (0.0-1.0); EOS # 0.5 10^3/uL (0.0-0.5); EOS % 4.4 % (0.0-3.0); HEMATOCRIT 33.5 % (42.0-52.0); LYMPH # 1.3 10^3/uL (1.5-5.0); MEAN CORPUSCULAR HEMOGLOBIN 30.1 pg (27.0-33.0); MEAN CORPUSCULAR HGB CONC 32.8 g/dl (32.0-36.5); MEAN CORPUSCULAR VOLUME 91.8 fl (80.0-96.0); MONO # 0.9 10^3/uL (0.0-0.8); MONO % 8.7 % (2.0-8.0); NEUTROPHILS # 7.5 10^3/uL (1.5-8.5); NEUTROPHILS % 73.1 % (36.0-66.0); PLATELET COUNT, AUTOMATED 332 10^3/uL (150-450); RED BLOOD COUNT 3.65 10^6/uL (4.30-6.10); WHITE BLOOD COUNT 10.3 10^3/uL (4.0-10.0)
[2024-09-27 23:35] LABS: ETHYL ALCOHOL (ETHANOL) 0.006 % (0.000-0.010); LIPASE 20 U/L (12-53)
[2024-09-27 23:36] LABS: CK-MB VALUE MASS < 1.0 NG/ML (<3.6); INR 1.14; PARTIAL THROMBOPLASTIN TIME 34.1 SECONDS (24.8-34.2)
[2024-09-27 23:37] LABS: ALBUMIN 2.5 G/DL (3.2-5.2); ALKALINE PHOSPHATASE 72 U/L (40-129); ALT/SGPT 16 U/L (7.0-40); AST/SGOT 17 U/L (<34); BILIRUBIN,DIRECT 0.1 MG/DL (<0.4); BILIRUBIN,TOTAL 0.3 MG/DL (0.3-1.2); BLOOD UREA NITROGEN 16 MG/DL (9-23); CARBON DIOXIDE LEVEL 26 MMOL/L (20-31); CHLORIDE LEVEL 106 MMOL/L (98-107); CPK CREATINE PHOSPHOKINASE 68 U/L (46-171); CREATININE FOR GFR 0.73 MG/DL (0.70-1.30); GLOMERULAR FILTRATION RATE > 60.0 (>35); GLUCOSE, FASTING 112 MG/DL (74-106); MB/CK RELATIVE INDEX 1.47 (< OR =4); SODIUM LEVEL 140 MMOL/L (136-145); TOTAL PROTEIN 6.3 G/DL (5.7-8.2)
[2024-09-27] MEDS ORDERED: ISOVUE-370 76% 100ML VIAL As Ordered ONE (23:41)
[2024-09-27] MEDS: ceFAZolin SOD 2 GM in IV 1 EA IV ONE (23:44)
[2024-09-28 02:45] LABS: HEMOGLOBIN 10.5 g/dl (13.5-17.5); MEAN CORPUSCULAR HGB CONC 32.8 g/dl (32.0-36.5); MEAN CORPUSCULAR VOLUME 91.4 fl (80.0-96.0); PLATELET COUNT, AUTOMATED 327 10^3/uL (150-450); WHITE BLOOD COUNT 9.8 10^3/uL (4.0-10.0)
[2024-09-28] MEDS: OLANZapine INTRAMUSCULAR 10MG VIAL IM ONE (02:53)
[2024-09-28] MEDS ORDERED: BACITRACIN OINTMENT 30GM TUBE TOP STA (06:05)
[2024-09-28] MEDS ORDERED: TETANUS IMMUNE GLOBULIN (HUMAN) 250 UNITS/ML SYRINGE IM.IMMUN ONE (06:10)
[2024-09-28] MEDS: NEOSPORIN OINT 0.9 GM PKT TOP STA (06:36)
[2024-09-28] MEDS: LIDOCAINE 2% W/EPINEPHRINE 20ML VIAL **PRES FREE INJ ONE (06:36)
[2024-09-28] MEDS: BOOSTRIX VACCINE (TETANUS/DIPHTH/ACEL. PERTUSSIS) 0.5ML SYR IM ONE (06:36)
[2024-09-28] MEDS ORDERED: AUGM12TA11 PO (08:05)
[2024-09-28 08:17] LABS: APPEARANCE, URINE CLEAR (CLEAR); BACTERIA, URINE AUTO NEGATIVE (NEGATIVE); BILIRUBIN, URINE AUTO NEGATIVE (NEGATIVE); BLOOD, URINE BLOOD NEGATIVE (NEGATIVE); COLOR, URINE COLORLESS (YELLOW); GLUCOSE, URINE (UA) AUTO NEGATIVE (NEGATIVE); KETONE, URINE AUTO NEGATIVE (NEGATIVE); LEUKOCYTE ESTERASE, URINE AUTO NEGATIVE (NEGATIVE); NITRITE, URINE AUTO NEGATIVE (NEGATIVE); PROTEIN, URINE AUTO NEGATIVE (NEGATIVE); RBC, URINE AUTO 0 /HPF (0-3); SPECIFIC GRAVITY URINE AUTO 1.006 (1.002-1.035); SQUAMOUS EPITHELIAL CELL UR AU 0 /HPF (0-6); UROBILINOGEN, URINE AUTO 0.2 mg/dL (0.0-2.0); WBC, URINE AUTO 0 /HPF (0-3)
[2024-09-28 08:35] LABS: AMPHETAMINES LEVEL URINE NEGATIVE (NEGATIVE); BARBITURATES URINE NEGATIVE (NEGATIVE); BENZODIAZEPINES URINE NEGATIVE (NEGATIVE); COCAINE METABOLITE URINE NEGATIVE (NEGATIVE); METHADONE URINE NEGATIVE (NEGATIVE); OPIATES URINE NEGATIVE (NEGATIVE); PHENCYCLIDINE URINE NEGATIVE (NEGATIVE)
[2024-09-28 08:36] LABS: CANNABINOIDS URINE NEGATIVE (NEGATIVE)
[2024-09-28 08:38] VITALS: BP 194/92; TEMP 96.3
[2024-09-28 09:15] VITALS: O2SAT 97
== END 2024-09-28 09:28 | disposition home or self-care (01) ==
LOC: EDBD 21:30 → M ED 22:32
DX: S81.812A Laceration without foreign body, left lower leg, initial encounter (principal); Y92.129 Unspecified place in nursing home as the place of occurrence of the external cause; Y93.9 Activity, unspecified; Y99.9 Unspecified external cause status; W19.XXXA Unspecified fall, initial encounter; R22.42 Localized swelling, mass and lump, left lower limb; R00.1 Bradycardia, unspecified; I44.0 Atrioventricular block, first degree; N28.1 Cyst of kidney, acquired; M47.812 Spondylosis without myelopathy or radiculopathy, cervical region; Z79.1 Long term (current) use of non-steroidal anti-inflammatories (NSAID); Z79.2 Long term (current) use of antibiotics; Z79.01 Long term (current) use of anticoagulants; Z79.810 Long term (current) use of selective estrogen receptor modulators (SERMs); Z79.899 Other long term (current) drug therapy
CPT/HCPCS: 12035; 70450; 71260; 72125; 73590; 74177; 76775; 80048; 80076; 80307; 81001; 82077; 82550; 82553; 83605; 83690; 84484; 85025; 85027; 85610; 85730; 86850; 86900; 86901; 90471; 90715; 93005; 93041; 94760; 96365; 96372; 99285; J0690; J2359; Q9967

== ENCOUNTER → 2024-09-28 | Outpatient (REF) | payer MEDICARE ==
[~2024-09-28] MED LIST changes: +AUGM12TA11 PO
== END ==
PROVIDERS: ATTEND Internal Medicine
DX: I48.91 Unspecified atrial fibrillation (principal); Z53.8 Procedure and treatment not carried out for other reasons

== ENCOUNTER → 2024-09-28 | Outpatient (REF) | PROVIDERS: ATTEND Internal Medicine | DX: I48.91 Unspecified atrial fibrillation (principal); Z53.8 Procedure and treatment not carried out for other reasons ==

== ENCOUNTER → 2024-10-28 | Outpatient (REF) | payer MEDICARE ==
[2024-10-28 08:46] LABS: HEMATOCRIT 34.8 % (42.0-52.0); HEMOGLOBIN 11.1 g/dl (13.5-17.5); MEAN CORPUSCULAR HEMOGLOBIN 29.7 pg (27.0-33.0); MEAN CORPUSCULAR HGB CONC 31.9 g/dl (32.0-36.5); PLATELET COUNT, AUTOMATED 271 10^3/uL (150-450); RED BLOOD COUNT 3.74 10^6/uL (4.30-6.10); WHITE BLOOD COUNT 7.1 10^3/uL (4.0-10.0)
[2024-10-28 09:05] LABS: BLOOD UREA NITROGEN 15 MG/DL (9-23); CALCIUM LEVEL 7.9 MG/DL (8.3-10.6); CARBON DIOXIDE LEVEL 26 MMOL/L (20-31); CHLORIDE LEVEL 106 MMOL/L (98-107); CREATININE FOR GFR 0.74 MG/DL (0.70-1.30); GLOMERULAR FILTRATION RATE > 60.0 (>35); GLUCOSE, FASTING 89 MG/DL (74-106); POTASSIUM SERUM 4.1 MMOL/L (3.5-5.1); SODIUM LEVEL 139 MMOL/L (136-145)
== END ==
PROVIDERS: ATTEND Internal Medicine
DX: I10 Essential (primary) hypertension (principal)

== ENCOUNTER → 2024-11-30 | Outpatient (REF) | payer MEDICARE | PROVIDERS: ATTEND Internal Medicine | DX: I48.91 Unspecified atrial fibrillation (principal); Z53.8 Procedure and treatment not carried out for other reasons ==

== ENCOUNTER → 2024-12-01 | Outpatient (CLI) | payer MEDICARE | LOC: M RAD 12:39 | PROVIDERS: ATTEND Nurse Practitioner Family | DX: R33.9 Retention of urine, unspecified (principal) ==

== ENCOUNTER → 2024-12-29 | Outpatient (CLI) | payer MEDICARE | LOC: M EKG 10:56 | PROVIDERS: ATTEND Physician Assistant | DX: R94.31 Abnormal electrocardiogram [ECG] [EKG] (principal) ==

== ENCOUNTER → 2024-12-30 | Outpatient (REF) | payer MEDICARE ==
[2024-12-30 08:47] LABS: HEMATOCRIT 39.5 % (42.0-52.0); HEMOGLOBIN 12.7 g/dl (13.5-17.5); MEAN CORPUSCULAR HEMOGLOBIN 30.1 pg (27.0-33.0); MEAN CORPUSCULAR HGB CONC 32.2 g/dl (32.0-36.5); MEAN CORPUSCULAR VOLUME 93.6 fl (80.0-96.0); PLATELET COUNT, AUTOMATED 231 10^3/uL (150-450); RED BLOOD COUNT 4.22 10^6/uL (4.30-6.10); WHITE BLOOD COUNT 7.9 10^3/uL (4.0-10.0)
[2024-12-30 09:18] LABS: CALCIUM LEVEL 8.4 MG/DL (8.3-10.6); CREATININE FOR GFR 0.81 MG/DL (0.70-1.30); GLOMERULAR FILTRATION RATE 86.4 (>35)
== END ==
PROVIDERS: ATTEND Internal Medicine
DX: I48.91 Unspecified atrial fibrillation (principal)

== ENCOUNTER → 2025-03-01 | Outpatient (REF) | payer OTHER, MEDICAID, MEDICARE ==
[2025-03-01 10:09] LABS: PLATELET COUNT, AUTOMATED 202 10^3/uL (150-450)
[2025-03-01 10:57] LABS: CALCIUM LEVEL 8.1 MG/DL (8.3-10.6); CARBON DIOXIDE LEVEL 26.0 MMOL/L (20-31); CHLORIDE LEVEL 103.0 MMOL/L (98-107); CREATININE FOR GFR 0.81 MG/DL (0.70-1.30); GLOMERULAR FILTRATION RATE 86.4 (>35); POTASSIUM SERUM 3.6 MMOL/L (3.5-5.1); SODIUM LEVEL 143.0 MMOL/L (136-145)
== END ==
PROVIDERS: ATTEND Internal Medicine
DX: I48.91 Unspecified atrial fibrillation (principal)

== ENCOUNTER → 2025-03-29 | Outpatient (REF) | payer OTHER, MEDICAID, MEDICARE ==
[~2025-03-29] MED LIST changes: +ACET-1515 PO; -ACET650T15 PO
[2025-03-29 11:42] LABS: PLATELET COUNT, AUTOMATED 226 10^3/uL (150-450)
[2025-03-29 12:07] LABS: CALCIUM LEVEL 7.6 MG/DL (8.3-10.6); CARBON DIOXIDE LEVEL 29.0 MMOL/L (20-31); CHLORIDE LEVEL 104.0 MMOL/L (98-107); CREATININE FOR GFR 0.91 MG/DL (0.70-1.30); GLOMERULAR FILTRATION RATE 82.6 (>35); POTASSIUM SERUM 3.8 MMOL/L (3.5-5.1); SODIUM LEVEL 144.0 MMOL/L (136-145)
== END ==
PROVIDERS: ATTEND Internal Medicine
DX: I48.91 Unspecified atrial fibrillation (principal)

== ENCOUNTER → 2025-06-07 | Outpatient (REF) | payer MEDICARE, MEDICAID ==
[2025-06-07 11:02] LABS: PLATELET COUNT, AUTOMATED 238 10^3/uL (150-450)
[2025-06-07 11:21] LABS: CALCIUM LEVEL 8.2 MG/DL (8.3-10.6); CARBON DIOXIDE LEVEL 30.0 MMOL/L (20-31); CHLORIDE LEVEL 105.0 MMOL/L (98-107); CREATININE FOR GFR 0.88 MG/DL (0.70-1.30); GLOMERULAR FILTRATION RATE 84.3 (>35); POTASSIUM SERUM 3.8 MMOL/L (3.5-5.1); SODIUM LEVEL 142.0 MMOL/L (136-145)
[2025-06-07 11:33] LABS: CHOLESTEROL LEVEL 125.0 MG/DL (<200); CHOLESTEROL RISK RATIO 3.08 (<5); LDL CHOLESTEROL 70.7 MG/DL (<100); NON-HDL-C 84.5 MG/DL; TRIGLYCERIDES LEVEL 69.0 MG/DL (<150)
== END ==
PROVIDERS: ATTEND Internal Medicine
DX: I95.9 Hypotension, unspecified (principal); Z79.899 Other long term (current) drug therapy

== ENCOUNTER → 2025-06-23 | Outpatient (REF) | payer MEDICARE, MEDICAID ==
[2025-06-23 10:58] LABS: PLATELET COUNT, AUTOMATED 217 10^3/uL (150-450)
[2025-06-23 11:21] LABS: CALCIUM LEVEL 8.1 MG/DL (8.3-10.6); CARBON DIOXIDE LEVEL 26.0 MMOL/L (20-31); CHLORIDE LEVEL 107.0 MMOL/L (98-107); CREATININE FOR GFR 0.89 MG/DL (0.70-1.30); GLOMERULAR FILTRATION RATE 84.0 (>35); POTASSIUM SERUM 4.0 MMOL/L (3.5-5.1); SODIUM LEVEL 145.0 MMOL/L (136-145)
== END ==
PROVIDERS: ATTEND Internal Medicine
DX: I95.9 Hypotension, unspecified (principal)

== ENCOUNTER → 2025-07-28 | Outpatient (REF) | payer MEDICARE, MEDICAID ==
[2025-07-28 13:21] LABS: PLATELET COUNT, AUTOMATED 243 10^3/uL (150-450)
[2025-07-28 13:53] LABS: CALCIUM LEVEL 7.7 MG/DL (8.3-10.6); CARBON DIOXIDE LEVEL 28.0 MMOL/L (20-31); CHLORIDE LEVEL 108.0 MMOL/L (98-107); CREATININE FOR GFR 0.81 MG/DL (0.70-1.30); GLOMERULAR FILTRATION RATE 86.4 (>35); POTASSIUM SERUM 4.2 MMOL/L (3.5-5.1); SODIUM LEVEL 143.0 MMOL/L (136-145)
== END ==
PROVIDERS: ATTEND Internal Medicine
DX: I10 Essential (primary) hypertension (principal)